=== PATIENT | female | born 1940 | race Caucasian/White ===

== ENCOUNTER 2021-09-02 11:15 | Inpatient (IN) ==
[2021-09-02 12:12] LABS: ABG PH 7.47 (7.35-7.45); BEecf 6.1 (-2.0-3.0); HCO3 29.8 (21-28)
[2021-09-02 12:13] LABS: ABG O2 HGB 91.5 % (95-100); COHb 2.3 (0.5-1.5); MetHb 1.2 (0-1.5); TCO2 31.1 (19-24); sO2 93.5 % (94-98); tHb 13.1 g/dl (11.7-17.4)
[2021-09-02] MEDS ORDERED: CARDIZEM INJ IVP ONE (12:36)
[2021-09-02] MEDS ORDERED: ELIQUIS PO ONE (12:39)
--- NOTE | 2021-09-02 12:43 | ED.PDOC ---
General ED Provider: Dr. JACQUIE TURCIOS Chief Complaint: Shortness of Air Stated Complaint: CC: SOB/Chest tightness. Palpitations Time Seen by Provider: 09/02/21 11:30 Mode of Arrival: Wheelchair Information Source: Patient Exam Limitations: No limitations Primary Care Provider: JAMES HINOJOSA Nursing and Triage Documentation Reviewed and Agree: Yes Does patient meet sepsis criteria?: No System Inflammatory Response Syndrome: Pulse >90 BPM Sepsis Protocol: For patient's 13 years and over: Temp is 96.8 and below OR 101 and greater Pulse >90 BPM Resp >20/minute Acutely Altered Mental Status Are patient's symptoms suggestive of a new infection, such as: -Pneumonia -Skin, Soft Tissue -Endocarditis -UTI -Bone, Joint Infection -Implantable Device -Acute Abdominal Infection -Wound Infection -Meningitis -Blood Stream Catheter Infection -Unknown Cardiovascular Complaint Exam Palpitations Complaint/Exam Onset/Duration: 2-3 days Symptoms Are: Still present Timing: Constant Initial Severity: Moderate Current Severity: Moderate Character: Reports Irregular and Pounding Aggravating: Reports Exertion Alleviating: Reports Rest Associated Signs and Symptoms: Reports Lightheadedness, Dizziness, Chest pain and Shortness of breath Related History: Similar episode Related Surgical History: Reports None Cardiac Risk Factors: Reports Hypertension Pulmonary Embolism Risk Factors: Reports None and Malignancy Atrial Fibrillation Risk Factors: Reports Hypertension Review of Systems Review Of Systems Constitutional: Reports Malaise and Weakness Eyes: Reports No symptoms Ears, Nose, Mouth, Throat: Reports No symptoms Respiratory: Reports Cough, Short of air and Wheezing Cardiac: Reports No symptoms GI: Reports No symptoms : Reports No symptoms Musculoskeletal: Reports No symptoms Skin: Reports No symptoms Neurological: Reports Anxiety Endocrine: Reports No symptoms All Other Systems: Reviewed and Negative [facility]LY [facility] Medical History (Updated 09/03/21 @ 15:56 by DEMETRIS RODRIGUEZ) Cancer Family History (Updated 09/02/21 @ 17:10 by OSMANY STEIN RN) Mother Cardiovascular disease FATHER Cardiovascular disease Social History (Updated 09/02/21 @ 17:12 by OSMANY STEIN RN) Smoking and tobacco status: Never smoker Alcohol intake: former Surgical History (Updated 09/03/21 @ 15:56 by DEMETRIS RODRIGUEZ) Hx of total knee arthroplasty Female Reproductive History Menstrual Hx Hysterectomy: Yes Hx Tubal Ligation: No Physical Exam Physical Exam Appearance: Reports Ill-appearing, Thin and Cachectic Ill-appearing: Severe Pain Distress: Mild Eyes: Reports DEBBIE, EOMI, Conjunctiva clear, Conjunctiva pale and Right pupil size (PERL_A) ENT: Reports Ears normal, Oropharynx normal and TMs Occluded Neck: Supple Respiratory: Reports Airway patent, Breath sounds diminished and Wheezes Cardiovascular: Reports RRR and No murmur GI/: Reports Soft, Nontender and No masses Musculoskeletal: Reports Normal strength, ROM intact, No edema and No calf tenderness Skin: Reports Warm, Dry and Normal color Neurological: Reports Sensation intact, Motor intact, Reflexes intact, Cranial nerves intact, Alert and Oriented Psychiatric: Reports Affect appropriate and Mood appropriate Interpretation Radiology Interpretation Radiology Interpretation By: ED Physician Xray Comments: EKG-afib rvr Critical Care Note Critical Care Note Total Critical Care Time (mins): 30 Course Course Hematology/Chemistry: 09/04/21 04:56 09/04/21 04:56 Orders, Labs, Meds: Lab Review 09/02/21 09/02/21 09/02/21 11:52 12:48 12:48 WBC 7.20 RBC 4.59 Hgb 12.8 Hct 40.0 MCV 87.1 MCH 27.9 MCHC 32.0 RDW Coeff of Jah 13.8 Plt Count 425 Immature Gran % (Auto) 0.1 Neut % (Auto) 74.4 Lymph % (Auto) 14.4 Oxford % (Auto) 8.6 Eos % (Auto) 1.9 Baso % (Auto) 0.6 Neut # (Auto) 5.4 Lymph # (Auto) 1.0 Oxford # (Auto) 0.6 Eos # (Auto) 0.1 Baso # (Auto) 0.0 Immature Gran # (Auto) 0.0 PT 10.8 INR 1.04 APTT 23.9 Puncture Site L rad Base Excess 6.1 H O2 Saturation 93.5 L ABG pH 7.47 H ABG pCO2 41.0 ABG pO2 64.0 L ABG HCO3 29.8 H ABG Total CO2 31.1 H Norman Test + Hemoglobin 1.2 Oxyhemoglobin 91.5 L Carboxyhemoglobin 2.3 H Total Hemoglobin 13.1 FiO2 % 21.0 Sodium Potassium Chloride Carbon Dioxide Anion Gap BUN Creatinine Estimated GFR (MDRD) BUN/Creatinine Ratio Glucose Calcium Magnesium Total Bilirubin AST ALT Alkaline Phosphatase Troponin I Total Protein Albumin Globulin Albumin/Globulin Ratio Adenovirus (PCR) B. pertussis DNA (PCR) B.parapertussis DNA PCR C. pneumoniae DNA (PCR) Coronavirus OC43 (PCR) Coronavirus HKU1 (PCR) Coronavirus 229E (PCR) Coronavirus NL63 (PCR) Human Metapneumovir PCR Influenza Type A (PCR) Influenza B (RT-PCR) M. pneumoniae (PCR) Parainfluenza 1 (PCR) Parainfluenza 2 (PCR) Parainfluenza 3 (PCR) Parainfluenza 4 (PCR) RSV (PCR) Entero/Rhino (PCR) SARS-CoV-2 (PCR) 09/02/21 09/02/21 12:48 14:57 WBC RBC Hgb Hct MCV MCH MCHC RDW Coeff of Jah Plt Count Immature Gran % (Auto) Neut % (Auto) Lymph % (Auto) Oxford % (Auto) Eos % (Auto) Baso % (Auto) Neut # (Auto) Lymph # (Auto) Oxford # (Auto) Eos # (Auto) Baso # (Auto) Immature Gran # (Auto) PT INR APTT Puncture Site Base Excess O2 Saturation ABG pH ABG pCO2 ABG pO2 ABG HCO3 ABG Total CO2 Norman Test Hemoglobin Oxyhemoglobin Carboxyhemoglobin Total Hemoglobin FiO2 % Sodium 140.6 Potassium 4.34 Chloride 103.9 Carbon Dioxide 29.1 Anion Gap 11.94 BUN 10.3 Creatinine 0.71 Estimated GFR (MDRD) 80.00 BUN/Creatinine Ratio 14.50 Glucose 115.9 H Calcium 9.12 Magnesium 2.32 H Total Bilirubin 0.36 AST 18.2 ALT 10.9 Alkaline Phosphatase 83.8 Troponin I < 0.012 Total Protein 7.44 Albumin 3.98 Globulin 3.46 Albumin/Globulin Ratio 1.15 Adenovirus (PCR) Not detected B. pertussis DNA (PCR) Not detected B.parapertussis DNA PCR Not detected C. pneumoniae DNA (PCR) Not detected Coronavirus OC43 (PCR) Not detected Coronavirus HKU1 (PCR) Not detected Coronavirus 229E (PCR) Not detected Coronavirus NL63 (PCR) Not detected Human Metapneumovir PCR Not detected Influenza Type A (PCR) Not detected Influenza B (RT-PCR) Not detected M. pneumoniae (PCR) Not detected Parainfluenza 1 (PCR) Not detected Parainfluenza 2 (PCR) Not detected Parainfluenza 3 (PCR) Not detected Parainfluenza 4 (PCR) Not detected RSV (PCR) Not detected Entero/Rhino (PCR) Not detected SARS-CoV-2 (PCR) Not detected Orders Category Date Time Status ADMIT PATIENT INPATIENT .TO [facility] (MONITORED BED) ADMISSION 09/02/21 15:20 Active ABG DRAW REQUEST Stat CARDIO 09/02/21 11:42 Completed EKG-(ED ONLY) Stat CARDIO 09/02/21 11:42 Completed EKG-(IP & OP ONLY) Routine CARDIO 09/02/21 14:50 Completed OXYGEN Routine CARDIO 09/02/21 14:49 Completed INTAKE & OUTPUT Q8HR CARE 09/02/21 14:49 Active TELEMETRY MONITORING TELE CARE 09/02/21 15:21 Active VITAL SIGNS Q4HR CARE 09/02/21 14:49 Active IV [ED IV/MEDIPORT/POWERPORT] .ONCE EMERGENCY 09/02/21 12:20 Active ABG COOX Stat LAB 09/02/21 11:52 Completed ABG COOX Stat LAB 09/02/21 12:19 Stop Req CBC W/ AUTO DIFF DAILY@0600 LAB 09/03/21 06:05 Completed CBC W/ AUTO DIFF DAILY@0600 LAB 09/04/21 04:56 Completed CBC W/ AUTO DIFF Stat LAB 09/02/21 12:48 Completed CMP [COMPREHENSIVE METABOLIC PANEL] Stat LAB 09/02/21 12:48 Completed COMPREHENSIVE METABOLIC PANEL DAILY@0600 LAB 09/04/21 04:56 Completed MAGNESIUM Stat LAB 09/02/21 12:48 Completed PARTIAL THROMBOPLASTIN TIME Stat LAB 09/02/21 12:48 Completed PT WITH INR DAILY@0600 LAB 09/03/21 06:05 Completed PT WITH INR DAILY@0600 LAB 09/04/21 04:56 Completed PT WITH INR Stat LAB 09/02/21 12:48 Completed RESPIRATORY PANEL 2.1 (PCR) Stat LAB 09/02/21 14:57 Completed TROPONIN I Stat LAB 09/02/21 12:48 Completed 0.9 % Sodium Chloride [Saline Flush] MEDS 09/02/21 12:19 Discontinued 1 syr IVF PRN PRN Apixaban [Eliquis] MEDS 09/02/21 17:00 Active 5 mg PO BIDWM Apixaban [Eliquis] MEDS 09/03/21 09:00 Discontinued 5 mg PO DAILY Apixaban [Eliquis] MEDS 09/02/21 12:39 Discontinued 5 mg PO ONCE ONE Diltiazem HCl [Cardizem Cd] MEDS 09/02/21 14:00 Active 120 mg PO DAILY Diltiazem HCl [Cardizem Inj] MEDS 09/02/21 12:36 Discontinued 20 mg IVP ONCE ONE Furosemide [Lasix Tab] MEDS 09/02/21 17:00 Discontinued 40 mg PO ONCE ONE RESUSCITATION STATUS Routine OTHERS 09/02/21 14:49 Completed CHEST, 1V AP ONLY Stat RADS 09/02/21 12:19 Completed Medications Generic Name Dose Route Start Last Admin Trade Name Freq PRN Reason Stop Dose Admin Acetaminophen 650 mg 09/02/21 21:39 Acetaminophen 325 Mg Tablet PO Q4H PRN Headache Apixaban 5 mg 09/02/21 17:00 09/03/21 18:13 Apixaban 5 Mg Tab PO 5 mg BIDWM ESDRAS Administration Atropine Sulfate 0.5 mg 09/02/21 21:39 Atropine Sulfate Inj 1 Mg/10 Ml Disp.Syrin IVP ONCE PRN Symptomatic Bradycardia Diltiazem HCl 120 mg 09/02/21 14:00 09/03/21 08:40 Diltiazem Hcl 120 Mg Cap.Er.24h PO 120 mg DAILY ESDRAS Administration Furosemide 20 mg 09/03/21 12:30 09/04/21 05:57 Furosemide 20 Mg Tablet PO 20 mg QDAC ESDRAS Administration CEFTRIAXONE/D5W 1 GM PREMIX 1 gm in 50 mls @ 75 mls/hr 09/04/21 09:00 Rocephin 1 Gm/50 Ml D5w IV 09/07/21 08:59 DAILY ESDRAS Losartan Potassium 50 mg 09/03/21 12:30 09/03/21 12:58 Losartan Potassium 25 Mg Tablet PO 50 mg DAILY ESDRAS Administration Nitroglycerin 0.4 mg 09/02/21 21:39 Nitroglycerin 0.4 Mg Tab.Subl SL Q5MIN X 3 DOSES PRN Chest Pain Omeprazole 40 mg 09/04/21 06:30 09/04/21 05:56 Omeprazole 20 Mg Capsule.Dr PO 40 mg QDAC ESDRAS Administration Potassium Chloride 10 meq 09/03/21 12:30 09/03/21 12:58 Potassium Chloride 10 Meq Capsule.Er PO 10 meq DAILYWM ESDRAS Administration Sodium Chloride 1 syr 09/03/21 05:00 09/04/21 05:57 0.9% Sodium Chloride 10 Ml Disp.Syrin IVF 1 syr Q8HR ESDRAS Administration Discontinued Medications Generic Name Dose Route Start Last Admin Trade Name Freq PRN Reason Stop Dose Admin Apixaban 5 mg 09/02/21 12:39 09/02/21 13:30 Apixaban 5 Mg Tab PO 09/02/21 12:40 5 mg ONCE ONE Administration Apixaban 5 mg 09/03/21 09:00 Apixaban 5 Mg Tab PO DAILY ESDRAS Dexamethasone Sodium Phosphate 4 mg 09/03/21 12:09 09/03/21 12:59 Dexamethasone Sod Phos 4 Mg/Ml Inj IM 09/03/21 12:10 4 mg ONCE ONE Administration Digoxin 125 mcg 09/02/21 21:23 09/02/21 22:46 Digoxin Inj 500 Mcg/2 Ml Amp IVP 09/02/21 21:24 125 mcg ONCE ONE Administration Diltiazem HCl 20 mg 09/02/21 12:36 09/02/21 13:18 Diltiazem Hcl Inj 25 Mg/5 Ml Vial IVP 09/02/21 12:37 20 mg ONCE ONE Administration Furosemide 40 mg 09/02/21 17:00 09/02/21 18:37 Furosemide 40 Mg Tablet PO 09/02/21 17:01 40 mg ONCE ONE Administration Furosemide 40 mg 09/02/21 21:24 09/02/21 22:46 Furosemide Inj 40 Mg/4 Ml Vial IVP 09/02/21 21:25 40 mg ONCE ONE Administration Omeprazole 40 mg 09/03/21 06:30 09/03/21 08:40 Omeprazole 20 Mg Capsule.Dr PO 40 mg DAILY ESDRAS Administration Sodium Chloride 1 syr 09/02/21 12:19 09/02/21 13:19 0.9% Sodium Chloride 10 Ml Disp.Syrin IVF 1 syr PRN PRN Administration To flush IV Sodium Chloride 1 syr 09/02/21 21:00 09/02/21 21:44 0.9% Sodium Chloride 10 Ml Disp.Syrin IVF 1 syr Q8HR ESDRAS Administration Vital Signs: Temp Pulse Resp BP Pulse Ox 09/02/21 11:15 97.9 F 111 H 18 124/90 93 L JOSE Risk Score JOSE Risk Score: Risk Score Odds of by 30D 0 0.1 (0.1-0.2) 1 0.3 (0.2-0.3) 2 0.4 (0.3-0.5) 3 0.7 (0.6-0.9) 4 1.2 (1.0-1.5) 5 2.2 (1.9-2.6) 6 3.0 (2.5-3.6) 7 4.8 (3.8-6.1) Discharge Plan Discharge Patient Disposition: ADMITTED INPATIENT Discharge Problem: A-fib, Left bundle branch block ED Provider: JACQUIE TURCIOS Physician Progress Note: []
[2021-09-02 12:55] LABS: BASOPHILS % (AUTO) 0.6 % (0.0-3.0); EOSINOPHILS # (AUTO) 0.1 K/ul (0.0-0.7); EOSINOPHILS % (AUTO) 1.9 % (0.0-7.0); HEMOGLOBIN 12.8 g/dl (12.0-16.0); IMMATURE GRANULOCYTE % (AUTO) 0.1 % (0.0-5.0); LYMPHOCYTES % (AUTO) 14.4 (10.0-50.0); MEAN CORPUSCULAR HEMOGLOBIN 27.9 pg (27.0-31.0); MEAN CORPUSCULAR VOLUME 87.1 fl (81.0-99.0); MONOCYTES # (AUTO) 0.6 K/uL (0.4-2.0); MONOCYTES % (AUTO) 8.6 (0-10); NEUTROPHILS # (AUTO) 5.4 K/ul (2.0-6.9); NEUTROPHILS % (AUTO) 74.4 % (42.2-75.2); PLATELET COUNT 425 10^3/uL (140-440); RDW COEFFICIENT OF VARIATION 13.8 % (11.6-14.8); RED BLOOD COUNT 4.59 10^6/ul (4.20-5.40)
[2021-09-02 13:03] LABS: ALANINE AMINOTRANSFERASE 10.9 U/L (0-35); ALBUMIN 3.98 g/dL (3.5-5.0); ALKALINE PHOSPHATASE 83.8 U/L (53-141); ASPARTATE AMINO TRANSFERASE 18.2 U/L (14-36); BILIRUBIN,TOTAL 0.36 mg/dL (0.2-1.3); BLOOD UREA NITROGEN 10.3 mg/dL (7-17); CALCIUM 9.12 mg/dL (8.4-10.2); CARBON DIOXIDE 29.1 mmol/L (22-30.0); CHLORIDE 103.9 mmol/L (98-107); CREATININE 0.71 mg/dL (0.60-1.30); GLUCOSE 115.9 mg/dL (74-106); MAGNESIUM 2.32 mg/dL (1.6-2.3); POTASSIUM 4.34 mmol/L (3.5-5.1); SODIUM 140.6 mmol/L (134.5-145); TOTAL PROTEIN 7.44 g/dL (6.3-8.2)
[2021-09-02 13:16] LABS: TROPONIN I < 0.012 ng/ml (0.0000-0.120)
[2021-09-02 13:28] LABS: PARTIAL THROMBOPLASTIN TIME 23.9 SEC (23.9-40.0); PROTHROMBIN TIME 10.8 SEC (9.3-11.0)
[2021-09-02] MEDS: CARDIZEM CD PO SCH (13:47)
--- NOTE | 2021-09-02 14:13 | DI ---
EXAM: Chest radiograph single view 09/02/2021 HISTORY: Shortness of breath COMPARISON: None. FINDINGS/IMPRESSION: Trachea is midline. Cardiomediastinal silhouette is enlarged which can be accentuated by the AP tech nique. Atherosclerotic change in the aorta. Bibasilar lung opacities; may represent pneumonia and/o r atelectasis. Osseous structures are intact. Degenerative change in the bilateral glenohumeral radha nts. Separation of the left AC joint.
[2021-09-02 15:05] LABS: BORDETELLA PARAPERTUSSIS (PCR) NOT DETECTED (NOT DETECT); BORDETELLA PERTUSSIS (PCR) NOT DETECTED (NOT DETECT); CHLAMYDIA PNEUMONIAE (PCR) NOT DETECTED (NOT DETECT); CORONAVIRUS 229E (PCR) NOT DETECTED (NOT DETECT); CORONAVIRUS HKU1 (PCR) NOT DETECTED (NOT DETECT); CORONAVIRUS NL63 (PCR) NOT DETECTED (NOT DETECT); CORONAVIRUS OC43 (PCR) NOT DETECTED (NOT DETECT); HUMAN METAPNEUMOVIRUS (PCR) NOT DETECTED (NOT DETECT); HUMAN RHINOVIRUS/ENTEROV (PCR) NOT DETECTED (NOT DETECT); INFLUENZA B (PCR) NOT DETECTED (NOT DETECT); MYCOPLASMA PNEUMONIAE (PCR) NOT DETECTED (NOT DETECT); PARAINFLUENZA VIRUS 1 (PCR) NOT DETECTED (NOT DETECT); PARAINFLUENZA VIRUS 2 (PCR) NOT DETECTED (NOT DETECT); PARAINFLUENZA VIRUS 3 (PCR) NOT DETECTED (NOT DETECT); PARAINFLUENZA VIRUS 4 (PCR) NOT DETECTED (NOT DETECT); RESPIRATORY SYNCYTIAL V (PCR) NOT DETECTED (NOT DETECT); SARS_COV_2 (PCR) NOT DETECTED (NOT DETECT)
[2021-09-02 15:52] LABS: ADENOVIRUS (PCR) NOT DETECTED (NOT DETECT)
[2021-09-02] MEDS ORDERED: LASIX TAB PO ONE (17:00)
--- NOTE | 2021-09-02 17:10 | CT ---
EXAM: CT of the chest without contrast. HISTORY: Chest pain. COMPARISON: None. TECHNIQUE: Contiguous axial images were obtained from the lung apices to the upper abdomen at 3 mm i ntervals. Soft tissue and lung algorithm images were reviewed. The study was performed without cont rast IV contrast. Sagittal and coronal reformats were reviewed. CONTRAST: None FINDINGS: The study is limited by motion artifact. LUNGS/AIRWAYS: Bilateral pleural effusions, right greater than left. Mild interstitial prominence. There is a noncalcified nodule in the right upper lobe, best seen on axial image 26 measuring up to 0.8 cm. Measurements are limited due to the motion artifact. Calcified granulomas. The pulmonary interstitium is normal. The airways are widely patent. There is no pleural thickening. HEART: The heart size is within normal limits. Coronary artery calcifications. Aortic valve calcifi cations. MEDIASTINUM/DILMA: Calcified lymph nodes. CHEST WALL/THORACIC INLET: No masses or adenopathy. OSSEUS STRUCTURES: Normal for age. UPPER ABDOMEN: Limited views of the upper abdomen are available. ADDITIONAL FINDINGS: None IMPRESSION: 1. Bilateral pleural effusions, right greater than left. 2. Granulomatous change. 3. Noncalcified nodule in the right upper lobe. This appear to be subpleural location. However lizandro surements are limited due to motion artifact. Recommend follow-up study and 3 months, after symptoms resolve. 4. Coronary artery disease. 5. Granulomatous changes. All CT scans are performed using dose optimization techniques as appropriate to the performed exam an d include at least one of the following: Automated exposure control, adjustment of the mA and/or kV according t o size, and the use of iterative reconstruction technique.
[2021-09-02 17:48] VITALS: BMI 36.3
[2021-09-02] MEDS: ELIQUIS PO SCH (18:38)
[2021-09-02] MEDS ORDERED: ATROPINE SULFATE PFS IVP PRN ×2 (21:39→21:44)
[2021-09-02] MEDS ORDERED: TYLENOL PO PRN (21:39)
[2021-09-02] MEDS ORDERED: NITROSTAT SL PRN (21:39)
[2021-09-02] MEDS: LANOXIN IVP ONE ×2 (21:44→22:46)
[2021-09-02] MEDS: LASIX IVP ONE ×2 (21:44→22:46)
[2021-09-02 22:29] LABS: CREATINE KINASE 39.7 U/L (30-135)
[2021-09-02 22:42] LABS: TROPONIN I 0.013 ng/ml (0.0000-0.120)
[2021-09-02 23:04] LABS: BILIRUBIN,URINE Negative (NEGATIVE); CLARITY,URINE Cloudy (CLEAR); COLOR,URINE Yellow (YELLOW); GLUCOSE, URINE (UA) Negative (NEGATIVE); KETONES,URINE Negative (NEGATIVE); LEUKOCYTE ESTERASE ,URINE 2+ (NEGATIVE); NITRITE,URINE Positive (NEGATIVE); PROTEIN,URINE Negative (NEGATIVE); URINE, BLOOD Negative (NEGATIVE); UROBILINOGEN,URINE 0.2 (0.2)
[2021-09-02 23:16] LABS: AMORPHOUS SEDIMENT,UR 2+ (NOT PRESENT); BACTERIA,URINE 2+ (NOT PRESENT)
[2021-09-03 05:20] LABS: ABG O2 HGB 92.3 % (95-100); ABG PH 7.43 (7.35-7.45); BEecf 8.2 (-2.0-3.0); COHb 2.3 (0.5-1.5); HCO3 32.5 (21-28); MetHb 0.9 (0-1.5); sO2 90.5 % (94-98); tHb 12.3 g/dl (11.7-17.4)
[2021-09-03] MEDS: PRILOSEC PO SCH ×2 (05:40→08:40)
[2021-09-03 06:08] LABS: BASOPHILS % (AUTO) 0.5 % (0.0-3.0); EOSINOPHILS # (AUTO) 0.2 K/ul (0.0-0.7); EOSINOPHILS % (AUTO) 3.6 % (0.0-7.0); HEMATOCRIT 36.8 % (37.0-47.0); HEMOGLOBIN 11.9 g/dl (12.0-16.0); IMMATURE GRANULOCYTE % (AUTO) 0.3 % (0.0-5.0); LYMPHOCYTES # (AUTO) 1.2 K/uL (0.60-3.4); LYMPHOCYTES % (AUTO) 20.1 (10.0-50.0); MEAN CORPUSCULAR HEMOGLOBIN 28.1 pg (27.0-31.0); MEAN CORPUSCULAR HGB CONC 32.3 (31.8-35.4); MEAN CORPUSCULAR VOLUME 86.8 fl (81.0-99.0); MONOCYTES # (AUTO) 0.6 K/uL (0.4-2.0); MONOCYTES % (AUTO) 10.1 (0-10); NEUTROPHILS % (AUTO) 65.4 % (42.2-75.2); PLATELET COUNT 390 10^3/uL (140-440); RDW COEFFICIENT OF VARIATION 13.9 % (11.6-14.8); RED BLOOD COUNT 4.24 10^6/ul (4.20-5.40); WHITE BLOOD COUNT 6.12 K/ul (4.6-10.2)
[2021-09-03 06:19] LABS: ALANINE AMINOTRANSFERASE 9.1 U/L (0-35); ALBUMIN 3.79 g/dL (3.5-5.0); ALKALINE PHOSPHATASE 77.6 U/L (53-141); ASPARTATE AMINO TRANSFERASE 19.8 U/L (14-36); BILIRUBIN,TOTAL 0.49 mg/dL (0.2-1.3); BLOOD UREA NITROGEN 10.6 mg/dL (7-17); CALCIUM 8.68 mg/dL (8.4-10.2); CHLORIDE 100.1 mmol/L (98-107); CHOLESTEROL 156.2 mg/dL (0-200); CREATINE KINASE 24.7 U/L (30-135); CREATININE 0.71 mg/dL (0.60-1.30); GLUCOSE 98.8 mg/dL (74-106); LDL CHOLESTEROL,CALCULATED 105 mmol/L; POTASSIUM 3.75 mmol/L (3.5-5.1); PROTHROMBIN TIME 11.7 SEC (9.3-11.0); SODIUM 140.5 mmol/L (134.5-145); TOTAL PROTEIN 7.07 g/dL (6.3-8.2); VLDL CHOLESTEROL 18 mg/dL (2-30)
[2021-09-03 06:33] LABS: TROPONIN I < 0.012 ng/ml (0.0000-0.120)
[2021-09-03] MEDS: CARDIZEM CD PO SCH (08:40)
[2021-09-03] MEDS: ELIQUIS PO SCH ×2 (08:41→18:13)
[2021-09-03] MEDS ORDERED: ELIQUIS PO SCH (09:00)
--- NOTE | 2021-09-03 11:33 | RS.OTINEVL ---
Subjective - Patient information Date of Evaluation: 09/03/21 Date of Arrival on Unit: 09/02/21 Admitted From:: Home Diagnosis: New onset Afib, LBBB, SOA PRECAUTIONS: Fall Risk Usual Living Arrangement: With Spouse Living Arrangement Comments: Lives alone with spouse Home Environment: House Medical History: Hypertension, Cancer Medical History Comments:: R TKA, LATEX ALLERGY?: Yes - Level of function Current Equipment Used at Home: PATIENT REPORTS HAVING WALKER AND CANE - UTILIZES NEEDED. SHOWER CHAIR & LIFT CHAIR. Pain Assessment - Pain Pain Score: 0 Interventions - Objective Patient Orientation: Person, Situation Current Interventions: Oxygen Observation: Pt having SOA with activity. Pt requires verbal cues during ADLS. Pt had an accident and wet her undergarments. Pt agreed to wear a depends. Pt was maximum assistance to eva the brief over her feet. Pt requires cues to complete tasks. Pt reported she does not use a RW at home but she will use a straight can when she gets out in the community. Interventions - ROM Right Upper Extremity AROM: WFL's Left Upper Extremity AROM: WFL's - Strength Right Upper Extremity Strength: Normal Left Upper Extremity Strength: Mild Weakness - Sensation Right Upper Extremity Sensation: Intact/Normal Left Upper Extremity Sensation: Intact/Normal Balance - Sitting Balance Static Sitting Balance: Fair Dynamic Sitting Balance: Fair - Standing Balance Static Standing Balance: Poor Dynamic Standing Balance: Poor - Comments Balance Assessment Comments: Pt is not steady on her feet at this time. Pt would benefit from a RW to increase her safety during functional mobility. ADL Skills - Self Feeding Self Feeding: Independent - Dressing Dressing UE: Independent, Verbal Cues Dressing LE: Max Assist, 1 person assist - Toilet Management Toilet Hygiene: Set Up Only, Verbal Cues - Comments Comments:: Pt requires verbal cues to complete tasks. Functional Mobility - Bed Mobility Rolling R/L: Independent Scooting: Independent Supine to Sit: Independent Sit to Supine: Independent - Transfers Sit to Stand: CGA Stand to Sit: CGA Stand Pivot Transfers: Min Assist PEBBLES INDEX SCORE: . Additional Treatment Performed - Additional units charged ADL: 15 - Time with patient Length of Evaluation: 19 Total treatment time: 34 Activities Would you be interested in leaving your room for activities?: Yes Would you enjoy group activities?: Yes Do you have difficulty with your vision?: Yes Patient Interests:: Watching Television, Visiting/Socializing Patient Education Patient Education: Education of diagnosis, Home Exercise Program, Education of Plan of Care Teaching Recipient: Patient Teaching Methods: Discussion Assessment Problem List:: Decreased level of function, Requires training/education, Decreased safety/Risk of falls, Weakness Rehab Potential: Fair Further Therapy Indicated?: Yes Evaluation Complexity: HISTORY: Medium, EXAM OF BODY SYSTEMS: Medium, CLINICAL D ECISION MAKING: Medium Patient's Goal(s): To improve with the SOA. Short Term Goals - Goals GOAL 1: Pt to be Mod-Independent with BLE dressing with AE. Goal to be met by: 09/09/21 GOAL 2: Pt to increase dyn. std. bal. to fair+ for functional mobility. Goal to be met by: 09/09/21 GOAL 3: Pt to increase activity tolerance to 10 minutes to increase safety of ADLS. Goal to be met by: 09/09/21 GOAL 4: Pt to increase strength of BUE to 4/5. 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 Goal to be met by: 09/12/21 GOAL 2: Pt to increase activity tolerance to 15 minutes. Goal to be met by: 09/12/21 GOAL 3: Pt to increase dyn. std. bal. to G-. Goal to be met by: 09/12/21 Plan Plan of Care: Therapeutic EX, Therapeutic Activity, Self-Care/Home Management, Cognitive Training Frequency of Treatment: 1-2 X day, as tolerated Duration of Treatment: 2 Weeks Anticipated Discharge Destination: Home Treatment Diagnosis (ICD 10 Codes): R53.1 Weakness, Z74.1 Need for assistance with personal care, Z74.0 Need ofr assistance with personal care. Has the Physician been added for Co-signature?: Yes
--- NOTE | 2021-09-03 11:47 | RS.PTINEVL ---
Subjective - Patient information Date of Evaluation: 09/03/21 Date of Arrival on Unit: 09/02/21 Admitted From:: Home Diagnosis: Afib with L BBB Usual Living Arrangement: With Spouse Home Environment: House, Stairs (few), Rail Medical History: Hypertension, Arthritis, Cancer Surgical History: Knee Replacement (right), Hysterectomy Medications: see chart Subjective Information/ Patient Comments:: pt states that she feels she is doing ok with her mobility however is agreeable to work with therapy. pt reports that she lives at home with and that he helps her anytime she needs it. - Level of function Prior to this admission, the patient could do the following:: Independent Selfcare, Independent Ambulation Current Level of Function: Partially Dependent Current Equipment Used at Home: PATIENT REPORTS HAVING WALKER AND CANE - UTILIZES NEEDED. SHOWER CHAIR & LIFT CHAIR. Interventions - Objective Patient Orientation: Person, Place (pt is confused re: situation and time. pt has difficulty with memory as well. ) Current Interventions: Oxygen (2 liters), Telemetry Observation: pt found to have been incontinent of urine, assisted pt with hygiene and notified nursing that she needed more bed linens. Range of Motion - ROM Right Upper Extremity AROM: WFL's Left Upper Extremity AROM: WFL's Right Lower Extremity AROM: WFL's Left Lower Extremity AROM: WFL's Muscle Strength - Muscle Strength Right Upper Extremity Strength: Mild Weakness (grossly 4/5) Left Upper Extremity Strength: Mild Weakness (grossly 4/5) Right Lower Extremity Strength: Mild Weakness (hip flex 4-/5, knee flex/ext 4/5, ankle DF/PF 4/5) Left Lower Extremity Strength: Mild Weakness (hip flex 4-/5, knee flex/ext 4/5, ankle DF/PF 4/5) Sensation - Sensation Right Upper Extremity Sensation: Intact/Normal Left Upper Extremity Sensation: Intact/Normal Right Lower Extremity Sensation: Intact/Normal Left Lower Extremity Sensation: Intact/Normal Palpation Palpation Findings: None/Normal Balance - Sitting Balance and Reactions Static Sitting Balance: Good Dynamic Sitting Balance: Fair (fair+) - Standing Balance and Reactions Static Standing Balance: Fair (fair-) Dynamic Standing Balance: Poor Standing Equilibrium Reactions: Delayed Left (pt demonstrates decreased balance with gait. ), Delayed Right Standing Protective Reactions: Delayed Left, Delayed Right Functional Mobility - Bed Mobility Supine to Sit: CGA - Transfers Sit to Stand: Min Assist Stand to Sit: CGA - Safety Awareness Safety Awareness: Poor PEBBLES INDEX SCORE: n/a Ambulation - Ambulation Assistive Device Used: Gait belt Orthotic/Prosthetic Device: No Distance: 25ft Assistance needed with Ambulation: CGA, Min Assist Gait Deviations: Forward posture, Short stride, Deviates from path Ambulation Comments: Feel pt would benefit from amb with rwx due to balance issues. Factors Affecting Ambulation: Decreased Balance, Breathing/O2 Saturation, Weakness, Decreased Safety, Cognitive Status, Limited Endurance Treatment time - Time with patient Length of Evaluation: 21 Total treatment time: 32 Patient Education - Education Patient Education: Activity Modification, Education of Plan of Care Teaching Recipient: Patient Teaching Methods: Discussion Comments: discussion regarding POC Assessment - Assessment Problem List:: Decreased level of function, Requires training/education, Decreased safety/Risk of falls, Weakness, Cognitive status limits abilities Rehab Potential: Good Further Therapy Indicated?: Yes Candidate for Swing Bed for Therapy Services?: Feel pt may be too high level for swing bed, could reassess at later time. Evaluation Complexity: HISTORY: Medium, EXAM OF BODY SYSTEMS: Medium, CLINICAL PRESENTATION: Medium, CLINICAL DECISION MAKING: Medium Patient's Goal(s): Get better so I can go home with my . Short Term Goals GOAL #1: pt independent with rolling and scooting in bed. Goal to be met by: 09/05/21 GOAL #2: Transfer sup to sit SBA Goal to be met by: 09/05/21 GOAL #3: Sit to/from stand CGA to SBA Goal to be met by: 09/05/21 GOAL #4: pt amb with rwx 100ft w O2 with CGA no LOB Goal to be met by: 09/05/21 GOAL #5: Improve strength BLE 4 to 4+/5 Goal to be met by: 09/05/21 Halfway Goals GOAL #1: pt transfer sup to/from sit to/from stand independently Goal to be met by: 09/08/21 GOAL #2: pt amb functional household distance with rx SBA to independent Goal to be met by: 09/08/21 GOAL #3: Ascend/descend 3 steps with HR. Goal to be met by: 09/08/21 Plan Plan of Care: Therapeutic EX, Therapeutic Activity Other:: gait training Frequency of Treatment: 1-2 X day, as tolerated Duration of Treatment: 5 days Anticipated Discharge Destination: Home Treatment Diagnosis (ICD 10 Codes): impaired balance R 26.81. gait difficulty R 26.2. muscle weakness M62.81 Has the Physician been added for Co-signature?: Yes
[2021-09-03] MEDS ORDERED: DECADRON IM ONE (12:09)
[2021-09-03 12:25] LABS: ABSOLUTE RETICS # 0.0944; RETICULOCYTE % 2.21 %; RETICULOCYTE HEMOGLOBIN 32.5
[2021-09-03 12:29] LABS: IRON 42.6 ug/dL (37-170)
[2021-09-03] MEDS: COZAAR PO SCH (12:58)
[2021-09-03] MEDS: LASIX TAB PO SCH (12:58)
[2021-09-03] MEDS: MICRO-K CAP PO SCH (12:58)
[2021-09-03 13:40] LABS: FOLATE > 20.00 ng/mL
--- NOTE | 2021-09-03 15:56 | RS.COGEVAL ---
Subjective Date of Evaluation: 09/03/21 Diagnosis: a-fib, SOB Current Level of Function: This 80 year old female was admitted with new onset of a-fib. Pt is being evaluated for cognitive deficits due to confusion and memory deficits. Current Subjective/complaints:: Pt sitting upright in recliner chair upon STATISTICAL CLERK entry. Pt offered no complaints. Pt agreeable to participate in cognitive testing. Patient's Goals: To return to home environment at [facility]. Information Informal Assessment:: She verbalized independent levels for all home management tasks including mail/bills/finances/medications. She recently had a change with memory function and has noticed decreased memory retention that she feels does not interefere with her daily routines. She reported wearing bilateral hearing aids, but only has her left one at this time. She wears glasses at all times. 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 Pt continued to discuss her home management skills which will include caring for two young children under the age of six. Formal/Objective Assessment:: SLUMs assessment completed. SLUMs assesses orientation, memory, language, mental manipulation, problem solving, auditory comprehenison, and clock drawing. Scores range from 30-27 WNL, 26-20 mild cognitive impairment, and 19-0 indicate dementia range. Pt scored 17/30 indicating dementia range. Orientation, problem solving, mental manipulation, expressive language were completed without deficits. Immediate/delayed memory recall, clock drawing, and auditory comprehension were completed with moderate- severe deficits. Pt demonstrated a moderate cognitive deficit. Analysis:: Pt demonstrated functional scores during orientation, simple problem solving, mental manipulation, and expressive language tasks. Pt demonstrated moderate-severe deficits with receptive language including auditory comprehension, clock drawing with time, and immediate and delayed recall/retention tasks. Pt presented with a moderate cognitive deficit. Summary and Recommendations:: Pt presented with cognitive deficits in immediate and delayed memory recall that does interfere with her communication exchanges. With unstructured 'wh' questions, pt demonstrated limited details in conversation and verbal repetition of previously stated information was observed several times. With auditory comprehension tasks, pt demonstrated 40% accuracy indicating she comprehends less than 50% of presented information; this could be attributed to hearing deficits and memory retention. At this time, pt would benefit from skilled speech therapy to address memory function. Functional Reporting G Codes: n/a Severity Impairment Rationale: n/a Short Term Goals Problem: Memory retention Goal #1: Pt utilize memory recall strategies, aids, devices w/ 80%. Problem: Auditory comprehension Goal #2: Pt recall 5 facts from verbal/visual/auditory information. Problem: Time management Goal #3: Pt draw a clock and set time with 100% accuracy. Clerical Order Filler Goals Problem: Cognitive deficits Goal #1: Pt demo 90% accuracy with cognitive tasks. Plan Duration of Treatment: 1 Week Frequency of Treatment: 1-2x/week Anticipated Discharge Destination: Home - Treatment Code (1) Cognitive communication deficit Code(s): R41.841 - Cognitive communication deficit
[2021-09-04 05:17] LABS: BASOPHILS % (AUTO) 0.1 % (0.0-3.0); HEMATOCRIT 35.9 % (37.0-47.0); HEMOGLOBIN 11.7 g/dl (12.0-16.0); IMMATURE GRANULOCYTE % (AUTO) 0.4 % (0.0-5.0); LYMPHOCYTES # (AUTO) 0.7 K/uL (0.60-3.4); LYMPHOCYTES % (AUTO) 7.3 (10.0-50.0); MEAN CORPUSCULAR HEMOGLOBIN 28.2 pg (27.0-31.0); MEAN CORPUSCULAR HGB CONC 32.6 (31.8-35.4); MEAN CORPUSCULAR VOLUME 86.5 fl (81.0-99.0); MONOCYTES # (AUTO) 0.4 K/uL (0.4-2.0); MONOCYTES % (AUTO) 3.9 (0-10); NEUTROPHILS % (AUTO) 88.3 % (42.2-75.2); PLATELET COUNT 429 10^3/uL (140-440); RDW COEFFICIENT OF VARIATION 13.5 % (11.6-14.8); RED BLOOD COUNT 4.15 10^6/ul (4.20-5.40); WHITE BLOOD COUNT 9.04 K/ul (4.6-10.2)
[2021-09-04 05:30] LABS: ALANINE AMINOTRANSFERASE 9.8 U/L (0-35); ALBUMIN 3.75 g/dL (3.5-5.0); ALKALINE PHOSPHATASE 73.3 U/L (53-141); ASPARTATE AMINO TRANSFERASE 19.1 U/L (14-36); BILIRUBIN,TOTAL 0.38 mg/dL (0.2-1.3); BLOOD UREA NITROGEN 15.7 mg/dL (7-17); CALCIUM 9.13 mg/dL (8.4-10.2); CARBON DIOXIDE 29.9 mmol/L (22-30.0); CHLORIDE 100.4 mmol/L (98-107); CREATININE 0.65 mg/dL (0.60-1.30); GLUCOSE 130.8 mg/dL (74-106); POTASSIUM 4.3 mmol/L (3.5-5.1); SODIUM 137.7 mmol/L (134.5-145); TOTAL PROTEIN 6.98 g/dL (6.3-8.2)
[2021-09-04 05:34] LABS: PROTHROMBIN TIME 11.5 SEC (9.3-11.0)
[2021-09-04] MEDS: PRILOSEC PO SCH (05:56)
[2021-09-04] MEDS: LASIX TAB PO SCH (05:57)
--- NOTE | 2021-09-04 09:15 | PCM.PROG ---
Attending Provider: ATTENDING PROVIDER: Dr. CUAUHTEMOC HERNÁNDEZ This patient is seen with Danna Valle, Nurse Practitioner. DATE OF SERVICE: 09/04/21 SUBJECTIVE: This 80 year old /WHITE F was hospitalized 09/02/21. The patient denies any chest pain and denies shortness of breath. The patient has lost 5 pounds since admission. REVIEW OF SYSTEMS: CONSTITUTIONAL: No night sweats. No fatigue, malaise, lethargy. No fever or chills. Weakness. HEENT: Eyes: No visual changes. No eye pain. No eye discharge. ENT: No runny nose. No epistaxis. No sinus pain. No odynophagia. No congestion. RESPIRATORY: No cough, no congestion. No hemoptysis. No shortness of breath. CARDIOVASCULAR: No angina symptoms. No CHF symptoms. No atypical chest pain for CAD. No palpitations. No orthopnea.. GASTROINTESTINAL: No abdominal pain. No nausea or vomiting. No diarrhea or constipation. No hematemesis. No hematochezia. GENITOURINARY: No urgency. No frequency. No dysuria. No hematuria. No ob structive symptoms. No discharge. No pain. No significant abnormal bleeding. MUSCULOSKELETAL: No musculoskeletal pain; no joint swelling. NEUROLOGICAL: Awake, alert, oriented to time, place and person. No headache. No neck pain. No syncope. No seizures. No dizziness. PSYCHIATRIC: Not anxious. No depression. No suicidal thoughts. No homicidal thoughts. SKIN: No rash. No lesions. No wounds. ENDOCRINE: No unexplained weight loss. No weight gain. HEMATOLOGIC/LYMPHATIC: No anemia. No purpura. No petechiae. No prolonged or excessive bleeding. No palpable lymph nodes. PHYSICAL EXAMINATION: GENERAL: The patient is awake, alert and oriented, lying in bed in no distress. VITAL SIGNS: Temperature 97.3 F, Pulse 82, Respiratory Rate 16, BP 107/66, Pulse Ox 99% HEENT: Head normocephalic, atraumatic. Eyes: Extraocular muscles are intact. Pupils are equal, round and reactive to light and accommodation. Ears: No lesions. Nose appeared normal. Throat: No exudate or erythema. NECK: Supple. No JVD, no carotid bruit. No lymphadenopathy or thyromegaly. LUNGS: Diminished breath sounds. Clear to auscultation. Percussion note normal. Chest symmetrical. HEART: S1, S2, no S3. No murmurs. No cyanosis or clubbing. No ascites. Pulses: Dorsalis pedis and posterior tibial pulses +1 to +2 both sides. ABDOMEN: Soft. Non-tender. Bowel sounds active. No CVA tenderness. No mass felt. EXTREMITIES: No edema. Full range of motion of all extremities, equal. NEUROLOGIC: No focal deficit. Cranial nerves II through XII are grossly intact. No headache. No double vision. SKIN: Not dry. Intact. Turgor-normal. LYMPHATIC: No palpable lymph nodes/no lymphedema. MUSCULOSKELETAL: Normal joints with no swelling. Muscle tone is normal. LAB REVIEW: 09/04/21 04:56 09/04/21 04:56 09/04/21 04:56: Sodium 137.7, Potassium 4.30, Chloride 100.4, Carbon Dioxide 29.9, Anion Gap 11.70, BUN 15.7, Creatinine 0.65, Estimated GFR (MDRD) 88.00, BUN/Creatinine Ratio 24.15, Glucose 130.8 H, Calcium 9.13, Total Bilirubin 0.38, AST 19.1, ALT 9.8, Alkaline Phosphatase 73.3, Total Protein 6.98, Albumin 3.75, Globulin 3.23, Albumin/Globulin Ratio 1.16 09/04/21 04:56: PT 11.5 H, INR 1.12 09/04/21 04:56: WBC 9.04, RBC 4.15 L, Hgb 11.7 L, Hct 35.9 L, MCV 86.5, MCH 28.2, MCHC 32.6, RDW Coeff of Jah 13.5, Plt Count 429, Immature Gran % (Auto) 0.4, Neut % (Auto) 88.3 H, Lymph % (Auto) 7.3 L, [place] % (Auto) 3.9, Eos % (Auto) 0.0, Baso % (Auto) 0.1, Neut # (Auto) 8.0 H, Lymph # (Auto) 0.7, [place] # (Auto) 0.4, Eos # (Auto) 0.0, Baso # (Auto) 0.0, Immature Gran # (Auto) 0.0 09/03/21 06:05: Transferrin 230 09/03/21 06:05: Iron 42.6, TIBC 288, % Saturation 15, Vitamin B12 214 L 09/03/21 06:05: Ferritin 37.40, NT-Pro-B Natriuret Pep 2420.000 H, Folate > 20.00 09/03/21 06:05: Reticulocyte % (Auto) 2.21, Absolute Retic 0.0944, Retic Hgb Equivalent 32.5 ASSESSMENT: Please see below. 1. New onset atrial fibrillation, controlled 2. Shortness of breath, improved 3. Bilateral pleural effusion 4. UTI PLAN: 1. Rocephin 1 gram IV daily 2. Repeat ABG this morning on 3 liters 3. 2D echo today 4. The patient reports she was previously a patient of Dr. Patel however has not seen a provider for some time. 5. Lipids, A1c along with T4 and TSH within normal limits. Plan and coordination of the patient's care discussed in the presence of Eclectic Doctor and nurse. SCRIBED BY: ANJEL CONWAY International Marketing Manager scribed while in presence of service performed by Dr. Hernández/Danna Valle APRN on 09/04/21 (811)
[2021-09-04 10:21] LABS: ABG PH 7.45 (7.35-7.45); BEecf 7.3 (-2.0-3.0); HCO3 31.3 (21-28); MetHb 0.9 (0-1.5); TCO2 32.7 (19-24); sO2 98.1 % (94-98)
[2021-09-04] MEDS: MICRO-K CAP PO SCH (10:26)
[2021-09-04] MEDS: ELIQUIS PO SCH ×2 (10:27→17:26)
[2021-09-04] MEDS: CARDIZEM CD PO SCH (10:27)
[2021-09-04] MEDS: COZAAR PO SCH (10:27)
[2021-09-04] MEDS: ROCEPHIN 1 GM/50 ML D5W 1 GM/50 ML BAG IV SCH (10:32)
--- NOTE | 2021-09-04 13:44 | PN ---
DATE OF SERVICE: 09/03/2021 SUBJECTIVE: 80 year old white female hospitalized with new onset of atrial fibrillation, shortness of breath and chest pressure. She is feeling a lot better. She doesn't have any chest pressure, shortness of breath is less than before. She says that she has been passing urine all night. REVIEW OF SYSTEMS: CONSTITUTIONAL: No night sweats. No fatigue, malaise, lethargy. No fever or chills. HEENT: Eyes: No visual changes. No eye pain. No eye discharge. ENT: No runny nose. No epistaxis. No sinus pain. No sore throat. No odynophagia. No congestion. RESPIRATORY: No cough, no congestion. No hemoptysis. Mild shortness of breath on exertion. CARDIOVASCULAR: No angina symptoms. No CHF symptoms. No atypical chest pain for CAD. No palpitations. No PND. No orthopnea. GASTROINTESTINAL: No abdominal pain. No nausea or vomiting. No diarrhea or constipation. No hematemesis. No hematochezia. Appetite is better. GENITOURINARY: No urgency. No frequency. No dysuria. No hematuria. No obstructive symptoms. No discharge. No pain. No significant abnormal bleeding. MUSCULOSKELETAL: No musculoskeletal pain; no joint swelling. NEUROLOGICAL: No headache. No neck pain. No syncope. No seizures. No dizziness. PSYCHIATRIC: Not anxious. No depression. No suicidal thoughts. No homicidal thoughts. SKIN: No rash. No lesions. No wounds. ENDOCRINE: No unexplained weight loss. No weight gain. HEMATOLOGIC/LYMPHATIC: No anemia. No purpura. No petechiae. No prolonged or excessive bleeding. No palpable lymph nodes. PHYSICAL EXAMINATION: GENERAL: The patient is oriented to time, place and person. VITAL SIGNS: Temperature 97.3, pulse 85, respiratory rate 18, blood pressure 150/56 and pulse ox 91% on room air. HEENT: Head normocephalic, atraumatic. Eyes: Extraocular muscles are intact. Pupils are equal, round and reactive to light and accommodation. Ears: No lesions. Nose appeared normal. Throat: No exudate or erythema. NECK: Supple. No JVD, no carotid bruit. No lymphadenopathy or thyromegaly. LUNGS: Decreased breath sounds but clear to auscultation. Good air entry, better than yesterday. Percussion note normal. Chest symmetrical. HEART: S1, S2, no S3. No murmurs. No cyanosis or clubbing. No ascites. Pulses: Dorsalis pedis and posterior tibial pulses +1 to +2 bilaterally. ABDOMEN: Soft. Nontender. Bowel sounds active. No CVA tenderness. No mass felt. EXTREMITIES: Edema noted much better than yesterday. Full range of motion of all extremities, equal. NEUROLOGIC: No focal deficit. Cranial nerves II through XII are grossly intact. No headache. No double vision. SKIN: Not dry. Intact. Turgor - normal. LYMPHATIC: No palpable lymph nodes/no lymphedema. MUSCULOSKELETAL: Normal joints with no swelling. Muscle tone is normal. LABS: Hgb 11.9, hct 36, WBC 6,100 normal differential, creatinine 0.7, BUN 10, potassium 3.7. Arterial blood gasses done this morning was pO2 of 58, pCo2 49 with pH 7.43 with 95% saturation on room air. ASSESSMENT: 1. Atrial fibrillation 2. Congestive heart failure, improving 3. Hypertension, Under control 4. Chronic anemia 5. Compensated respiratory acidosis with mild Co2 retention and Hypoxemia. The patient says that she has never been a smoker. This could be from CHF along with second hand smoke from her parents. Both of them smoked all their life. PLAN: 1. Anemia profile 2. Cozaar 50mg PO QAM 3. Lasix 20mg PO 4. K-tab 20meq PO daily 5. 1cc Decadron IM 6. BNP in the morning 7. Wait for T4, TSH and lipid profile 8. The patient was educated and explained about all the diagnosis in detail. CHF educated carried about TIME SPENT: More than 30 minutes. EXTENSIVE. Plan and coordination of the patient's care discussed in the presence of nurse. SHAWANDA
[2021-09-05 05:30] LABS: BASOPHILS % (AUTO) 0.1 % (0.0-3.0); EOSINOPHILS % (AUTO) 0.4 % (0.0-7.0); HEMATOCRIT 34.7 % (37.0-47.0); HEMOGLOBIN 11.5 g/dl (12.0-16.0); IMMATURE GRANULOCYTE % (AUTO) 0.3 % (0.0-5.0); LYMPHOCYTES # (AUTO) 1.6 K/uL (0.60-3.4); LYMPHOCYTES % (AUTO) 15.3 (10.0-50.0); MEAN CORPUSCULAR HEMOGLOBIN 28.2 pg (27.0-31.0); MEAN CORPUSCULAR HGB CONC 33.1 (31.8-35.4); MONOCYTES # (AUTO) 0.8 K/uL (0.4-2.0); MONOCYTES % (AUTO) 7.1 (0-10); NEUTROPHILS # (AUTO) 8.3 K/ul (2.0-6.9); NEUTROPHILS % (AUTO) 76.8 % (42.2-75.2); PLATELET COUNT 408 10^3/uL (140-440); RDW COEFFICIENT OF VARIATION 13.9 % (11.6-14.8); RED BLOOD COUNT 4.08 10^6/ul (4.20-5.40); WHITE BLOOD COUNT 10.74 K/ul (4.6-10.2)
[2021-09-05] MEDS: LASIX TAB PO SCH (05:41)
[2021-09-05] MEDS: PRILOSEC PO SCH (05:41)
[2021-09-05 05:42] LABS: ALANINE AMINOTRANSFERASE 9.4 U/L (0-35); ALBUMIN 3.78 g/dL (3.5-5.0); ALKALINE PHOSPHATASE 70.4 U/L (53-141); ASPARTATE AMINO TRANSFERASE 17.2 U/L (14-36); BILIRUBIN,TOTAL 0.25 mg/dL (0.2-1.3); BLOOD UREA NITROGEN 22.4 mg/dL (7-17); CALCIUM 9.17 mg/dL (8.4-10.2); CARBON DIOXIDE 31.3 mmol/L (22-30.0); CHLORIDE 99.1 mmol/L (98-107); CREATININE 0.77 mg/dL (0.60-1.30); GLUCOSE 101.7 mg/dL (74-106); POTASSIUM 4.09 mmol/L (3.5-5.1); SODIUM 136.9 mmol/L (134.5-145); TOTAL PROTEIN 6.98 g/dL (6.3-8.2)
[2021-09-05] MEDS: COZAAR PO SCH (08:34)
[2021-09-05] MEDS: MICRO-K CAP PO SCH (08:34)
[2021-09-05] MEDS: ELIQUIS PO SCH (08:34)
[2021-09-05] MEDS: CARDIZEM CD PO SCH (08:34)
[2021-09-05] MEDS ORDERED: LIDOCAINE HCL 1% SDV IM STA (11:51)
[2021-09-05] MEDS ORDERED: ROCEPHIN 1 GM VIAL IM ONE (11:51)
[2021-09-05] MEDS: ROCEPHIN 1 GM/50 ML D5W 1 GM/50 ML BAG IV SCH (12:19)
--- NOTE | 2021-09-05 13:14 | CM.DICTOOL ---
ADMISSION: 09/02/21 15:57 DISCHARGE: SEPTEMBER 05, 2021 DATE OF SERVICE: 09/05/21 FINAL DIAGNOSIS ATRIAL FIBRILLATION, NEW ONSET CONGESTIVE HEART FAILURE COMPENSATED RESPIRATORY ACIDOSIS WITH MILD CO2 RETENTION AND HYPOXEMIA URINE TRACT INFECTION, E-COLI ORGANISM HYPERTENSION CAD ( PER CT, 09/02/21) CHRONIC ANEMIA TIA SEVERAL YEARS AGO CANCER, UNKNOWN SITE GERD BILATERAL PLEURAL EFFUSIONS, RIGHT GREATER THAN LEFT ( CT 09/02/21 ) NODULE IN RT UPPER LOBE, NONCALCIFIED PER CT 09/02/2021 (RECOMMEND F/U STUDY IN 3 MONTHS) ABDOMINAL SURGERY, (SUPPOSEDLY FOR CANCER) TKR, RIGHT ECHOCARDIOGRAM (09/05/2021) LAST VITALS Temp Pulse Resp BP Pulse Ox 97.1 F L 88 19 138/88 99 09/05/21 10:00 09/05/21 10:00 09/05/21 10:00 09/05/21 10:00 09/05/21 10:00 TAKE THESE MEDICATIONS AT HOME Apixaban (Apixaban 5 Mg Tab) 5 mg PO BIDWM ESDRAS (NEW RX) Last Admin: 09/05/21 08:34 Dose: 5 mg Documented by: Diltiazem HCl (Diltiazem Hcl 120 Mg Cap.Er.24h) 120 mg PO DAILY ESDRAS (NEW RX) Last Admin: 09/05/21 08:34 Dose: 120 mg Documented by: Furosemide (Furosemide 20 Mg Tablet) 20 mg PO QDAC ESDRAS (NEW RX) Last Admin: 09/05/21 05:41 Dose: 20 mg Documented by: Losartan Potassium (Losartan Potassium 25 Mg Tablet) 50 mg PO DAILY ESDRAS (NEW RX) Last Admin: 09/05/21 08:34 Dose: 50 mg Documented by: Omeprazole (Omeprazole 20 Mg Capsule.Dr) 40 mg PO QDAC ESDRAS Last Admin: 09/05/21 05:41 Dose: 40 mg Documented by: Potassium Chloride (Potassium Chloride 10 Meq Capsule.Er) 10 meq PO DAILYWM ESDRAS (NEW RX) Last Admin: 09/05/21 08:34 Dose: 10 meq Documented by: MACRODANTIN 100 MG PO DAILY FOR 7 DAYS (NEW RX) ALLERGIES No Known Allergies Allergy (Verified 11/30/14 04:20) DISCONTINUED MEDICATIONS NONE NEW PRESCRIPTIONS: MACRODANTIN 100 MG DAILY FOR 7 DAYS ELIQUIS 5 MG BID WITH MEAL CARDIZEM CD 120 MG DAILY LASIX 20 MG DAILY BEFORE BREAKFAST COZAAR 50 MG DAILY MICRO K 10 MEQ DAILY WITH MEAL SMOKING: NOT APPLICABLE DISEASE SPECIFIC EDUCATION: ATRIAL FIBRILLATION DISCUSSED IN DETAIL, VERBALLY AND WRITTEN INFORMATION PROVIDED NEW MEDICATIONS; INCLUDING ELIQUIS RISKS/BENEFITS OF ELIQUIS DISCUSSED AVOID USE OF NSAIDS OR ASPIRIN WITH USE OF ELIQUIS APPOINTMENT LAB REVIEW: 09/05/21 05:25 09/05/21 05:25 09/05/21 05:25: Sodium 136.9, Potassium 4.09, Chloride 99.1, Carbon Dioxide 31.3 H, Anion Gap 10.59, BUN 22.4 H, Creatinine 0.77, Estimated GFR (MDRD) 73.00, BUN/Creatinine Ratio 29.09, Glucose 101.7, Calcium 9.17, Total Bilirubin 0.25, AST 17.2, ALT 9.4, Alkaline Phosphatase 70.4, Total Protein 6.98, Albumin 3.78, Globulin 3.20, Albumin/Globulin Ratio 1.18 09/05/21 05:25: WBC 10.74 H, RBC 4.08 L, Hgb 11.5 L, Hct 34.7 L, MCV 85.0, MCH 28.2, MCHC 33.1, RDW Coeff of Jah 13.9, Plt Count 408, Immature Gran % (Auto) 0.3, Neut % (Auto) 76.8 H, Lymph % (Auto) 15.3, [place] % (Auto) 7.1, Eos % (Auto) 0.4, Baso % (Auto) 0.1, Neut # (Auto) 8.3 H, Lymph # (Auto) 1.6, [place] # (Auto) 0.8, Eos # (Auto) 0.0, Baso # (Auto) 0.0, Immature Gran # (Auto) 0.0 PLAN: DISCHARGE HOME DIET: HEART HEALTHY ACTIVITY: MAY RESUME TOLERATED USE CANE OR WALKER FOR ADDED STABILITY WHEN WALKING AN APPOINTMENT IS SCHEDULED WITH DR. GREEN/KIRILL CAMPO APRN/VAIBHAV RYAN APRN ON SEPTEMBER 15, 2021 AT 9 AM CODE STATUS: DO NOT RESUSCITATE MRS. GRAMAJO IS ALERT AND ORIENTED X 4. SHE IS FORGETFUL. MRS. GRAMAJO LIVES AT HOME WITH HER . SHE IS AGREEABLE TO PLANS FOR DISCHARGE HOME TODAY. MRS. GRAMAJO IS INDEPENDENT WITH ACTIVITIES OF DAILY LIVING. SHE TRANSFERS FROM THE BED TO THE CHAIR/CHAIR TO THE BED PER SELF. SHE HAS BEEN USING A ROLLING WALKER DURING HER HOSPITAL STAY TO AMBULATE TO THE BATHROOM AND IN THE HALLWAY. HER GAIT IS STEADY. HER REPORTS SHE HAS A CANE AND A WALKER AT HOME FOR HER USE. MEAL INTAKES ARE GOOD AT 75-100%. SHE IS CONTINENT OF BOWEL AND BLADDER. SHE DENIES PAIN OR BURNING WITH URINATION, BUT DOES REPORT URGENCY WITH URINATION. HYDRATION STATUS IS GOOD. SKIN IS INTACT. AREAS OF BRUISING ARE NOTED TO THE UPPER EXTREMITIES. CUAUHTEMOC GREEN MD
[2021-09-05 13:43] VITALS: BP 132/60; TEMP 97.3
--- NOTE | 2021-09-05 15:58 | US ---
EXAM: Bilateral carotid Doppler HISTORY: Dizziness, nausea, weakness TECHNIQUE: Carotid ultrasound using Duplex imaging with esquivel scale, color, and Doppler imaging. FINDINGS: RIGHT: (all velocities in cm/sec, peak systolic/peak diastolic). ICA: 125/31 ICA/CCA ratio:1.4 CCA: 87/17 ECA:81 Vertebral: Not visualized Plaque: Mild echogenic plaque in the bulb and mild mixed echogenic plaque in the ICA. LEFT: (all velocities in cm/sec, peak systolic/peak diastolic). ICA: 104/27 ICA/CCA ratio: 1.1 CCA: 90/18 ECA: 74 Vertebral: Antegrade, Plaque: Echogenic plaque in the carotid bulb and proximal ICA. IMPRESSION: 1. Right ICA velocity is consistent with 50 - 69% (moderate) stenosis. 2. Left ICA velocity is consistent with less than 50% narrowing. 3. Non-visualized right vertebral artery.
--- NOTE | 2021-09-08 10:54 | PN ---
DATE OF SERVICE: 09/04/21 SUBJECTIVE: 80 year old white female was seen with Nurse Practitioner. The patient had a new onset atrial fibrillation and CHF. The patient's condition seems to be improving. She feeling better. Education carried out about atrial fibrillation, Eliquis and the bleeding problem that could happen intracranial and stomach bleed. Advised not to take any non-steroidal anti-inflammatory. The patient's is noncompliant but has promised to be compliant TIME SPENT: More than 30 minutes. Plan and coordination of the patient's care discussed in the presence of nurse. SHAWANDA
--- NOTE | 2021-09-08 11:13 | PN ---
DATE OF SERVICE: 09/05/2021 SUBJECTIVE: 80 year old white female hospitalized with new onset atrial fibrillation and CHF. Her condition has improved. She has no symptoms of CHF. Atrial fibrillation is under control. The patient was seen and examined in the emergency room on admission. She belonged to hospitalist service and I picked up the patient to be taken care of as the patient had cardiac problem. After long discussion I accepted her as a patient as the patient as more or less promised that she would have regular followup. REVIEW OF SYSTEMS: CONSTITUTIONAL: No night sweats. No fatigue, malaise, lethargy. No fever or chills. HEENT: Eyes: No visual changes. No eye pain. No eye discharge. ENT: No runny nose. No epistaxis. No sinus pain. No sore throat. No odynophagia. No congestion. RESPIRATORY: No cough, no congestion. No hemoptysis. No shortness of breath. CARDIOVASCULAR: No angina symptoms. No CHF symptoms. No atypical chest pain for CAD. No palpitations. No PND. No orthopnea. GASTROINTESTINAL: No abdominal pain. No nausea or vomiting. No diarrhea or constipation. No hematemesis. No hematochezia. GENITOURINARY: No urgency. No frequency. No dysuria. No hematuria. No obstructive symptoms. No discharge. No pain. No significant abnormal bleeding. MUSCULOSKELETAL: No musculoskeletal pain; no joint swelling. NEUROLOGICAL: No headache. No neck pain. No syncope. No seizures. No dizziness. PSYCHIATRIC: Not anxious. No depression. No suicidal thoughts. No homicidal thoughts. SKIN: No rash. No lesions. No wounds. ENDOCRINE: No unexplained weight loss. No weight gain. HEMATOLOGIC/LYMPHATIC: No anemia. No purpura. No petechiae. No prolonged or excessive bleeding. No palpable lymph nodes. PHYSICAL EXAMINATION: VITAL SIGNS: Temperature 97.2, pulse 85, respiratory rate 18, blood pressure 150/56 and pulse ox 91% on room air. HEENT: Head normocephalic, atraumatic. Eyes: Extraocular muscles are intact. Pupils are equal, round and reactive to light and accommodation. Ears: No lesions. Nose appeared normal. Throat: No exudate or erythema. NECK: Supple. No JVD, no carotid bruit. No lymphadenopathy or thyromegaly. LUNGS: Decreased breath sounds but good air entry. Clear to auscultation. Percussion note normal. Chest symmetrical. HEART: S1, S2, no S3. No murmurs. No cyanosis or clubbing. No ascites. Pulses: Dorsalis pedis and posterior tibial pulses +1 to +2 bilaterally. ABDOMEN: Soft. Nontender. Bowel sounds active. No CVA tenderness. No mass felt. EXTREMITIES: Trace edema. Full range of motion of all extremities, equal. NEUROLOGIC: No focal deficit. Cranial nerves II through XII are grossly intact. No headache. No double vision. SKIN: Not dry. Intact. Turgor - normal. LYMPHATIC: No palpable lymph nodes/no lymphedema. MUSCULOSKELETAL: Normal joints with no swelling. Muscle tone is normal. LABS: hgb 11.9, hct 36, WBC 6,000 normal differential, creatinine 0.7, BUN 10. ASSESSMENT: 1. Atrial fibrillation under control with rate of 80-90 per minute. 2. CHF under control 3. Hypertension 4. Obesity 5. Dyslipidemia PLAN: 1. Discharge the patient home on Cozaar, Lasix ,Potassium and Cardizem 2. All the medications discussed 3. Eliquis is another medication the patient is going to be one. Discussed in detail. No non-steroidal antiinflammatory with Eliquis. GI bleed and intracranial bleed discussed. 3. TIME SPENT: More than 30 minutes. Plan and coordination of the patient's care discussed in the presence of nurse. SHAWANDA
--- NOTE | 2021-09-08 11:28 | PN ---
09/02/2021: Level 5 09/03-09/04: A couple of days after admission they were extensive, rest of them are intermediate. 09/05/2021: D as in discharge MTDD
--- NOTE | 2021-09-08 11:28 | DS ---
DATE OF SERVICE: 09/05/2021 FINAL DIAGNOSIS: ATRIAL FIBRILLATION, NEW ONSET CONGESTIVE HEART FAILURE COMPENSATED RESPIRATORY ACIDOSIS WITH MILD CO2 RETENTION AND HYPOXEMIA URINE TRACT INFECTION, E-COLI ORGANISM HYPERTENSION CAD ( PER CT, 09/02/21) CHRONIC ANEMIA TIA SEVERAL YEARS AGO CANCER, UNKNOWN SITE GERD BILATERAL PLEURAL EFFUSIONS, RIGHT GREATER THAN LEFT ( CT 09/02/21 ) NODULE IN RT UPPER LOBE, NONCALCIFIED PER CT 09/02/2021 (RECOMMEND F/U STUDY IN 3 MONTHS) ABDOMINAL SURGERY, (SUPPOSEDLY FOR CANCER) TKR, RIGHT ECHOCARDIOGRAM (09/05/2021) LAST VITALS: Temp Pulse Resp BP Pulse Ox 97.1 F L 88 19 138/88 99 09/05/21 10:00 09/05/21 10:00 09/05/21 10:00 09/05/21 10:00 09/05/21 10:00 DISCHARGE INSTRUCTIONS: DISCHARGE HOME. AN APPOINTMENT IS SCHEDULED WITH DR. GREEN/KIRILL CAMPO APRN/VAIBHAV RYAN APRN ON SEPTEMBER 15, 2021 AT 9 AM. CODE STATUS: DO NOT RESUSCITATE. TAKE THESE MEDICATIONS AT HOME: Apixaban (Apixaban 5 Mg Tab) 5 mg PO BIDWM ESDRAS (NEW RX) Last Admin: 09/05/21 08:34 Dose: 5 mg Documented by: Diltiazem HCl (Diltiazem Hcl 120 Mg Cap.Er.24h) 120 mg PO DAILY ESDRAS (NEW RX) Last Admin: 09/05/21 08:34 Dose: 120 mg Documented by: Furosemide (Furosemide 20 Mg Tablet) 20 mg PO QDAC ESDRAS (NEW RX) Last Admin: 09/05/21 05:41 Dose: 20 mg Documented by: Losartan Potassium (Losartan Potassium 25 Mg Tablet) 50 mg PO DAILY ESDRAS (NEW RX) Last Admin: 09/05/21 08:34 Dose: 50 mg Documented by: Omeprazole (Omeprazole 20 Mg Capsule.Dr) 40 mg PO QDAC ESDRAS Last Admin: 09/05/21 05:41 Dose: 40 mg Documented by: Potassium Chloride (Potassium Chloride 10 Meq Capsule.Er) 10 meq PO DAILYWM ESDRAS (NEW RX) Last Admin: 09/05/21 08:34 Dose: 10 meq Documented by: MACRODANTIN 100 MG PO DAILY FOR 7 DAYS (NEW RX) ALLERGIES: No Known Allergies Allergy (Verified 11/30/14 04:20) DISCONTINUED MEDICATIONS: NONE NEW PRESCRIPTIONS: MACRODANTIN 100 MG DAILY FOR 7 DAYS ELIQUIS 5 MG BID WITH MEAL CARDIZEM CD 120 MG DAILY LASIX 20 MG DAILY BEFORE BREAKFAST COZAAR 50 MG DAILY MICRO K 10 MEQ DAILY WITH MEAL SMOKING: NOT APPLICABLE DISEASE SPECIFIC EDUCATION: ATRIAL FIBRILLATION DISCUSSED IN DETAIL, VERBALLY AND WRITTEN INFORMATION PROVIDED NEW MEDICATIONS; INCLUDING ELIQUIS RISKS/BENEFITS OF ELIQUIS DISCUSSED AVOID USE OF NSAIDS OR ASPIRIN WITH USE OF ELIQUIS APPOINTMENT LAB REVIEW: 09/05/21 05:25 09/05/21 05:25 09/05/21 05:25: Sodium 136.9, Potassium 4.09, Chloride 99.1, Carbon Dioxide 31.3 H, Anion Gap 10.59, BUN 22.4 H, Creatinine 0.77, Estimated GFR (MDRD) 73.00, BUN/Creatinine Ratio 29.09, Glucose 101.7, Calcium 9.17, Total Bilirubin 0.25, AST 17.2, ALT 9.4, Alkaline Phosphatase 70.4, Total Protein 6.98, Albumin 3.78, Globulin 3.20, Albumin/Globulin Ratio 1.18 09/05/21 05:25: WBC 10.74 H, RBC 4.08 L, Hgb 11.5 L, Hct 34.7 L, MCV 85.0, MCH 28.2, MCHC 33.1, RDW Coeff of Jah 13.9, Plt Count 408, Immature Gran % (Auto) 0.3, Neut % (Auto) 76.8 H, Lymph % (Auto) 15.3, [place] % (Auto) 7.1, Eos % (Auto) 0.4, Baso % (Auto) 0.1, Neut # (Auto) 8.3 H, Lymph # (Auto) 1.6, [place] # (Auto) 0.8, Eos # (Auto) 0.0, Baso # (Auto) 0.0, Immature Gran # (Auto) 0.0 DIET: HEART HEALTHY ACTIVITY: MAY RESUME TOLERATED USE CANE OR WALKER FOR ADDED STABILITY WHEN WALKING HOSPITAL COURSE: 80 year old white female was hospitalized through the emergency room as the patient came with atrial fibrillation with rapid ventricular response. The patient had shortness of breath and chest tightness for 7 days. The physician had not seen this patient for more than a year and a half. Followed by Dr. Patel. She says that she has been very compliant of followup with any doctors. She was given Cardizem IV 20mg and then 120mg PO. A dose of Lanoxin was given. Lasix was started. The patient's condition improved. She required Cozaar for the control of her blood pressure. At the time of discharge had no symptoms of CHF. Her atrial fibrillation was very well under control with rate of 80-90 per minute. Her echo showed hypokinetic septal wall likely from left bundle branch block with ejection fraction 45%. LV size was normal. LA size is enlarged. The patient has calcified mitral valve anulus. The patient agreed to take Eliquis. Eliquis side effects discussed with the patient with intracranial bleed and GI bleed. She is strongly advised not to take any nonsteroidal antiinflammatory. Complications discussed. CHADS VASC score is 4. The patient had some retention of CO2 with what looks like compensated respiratory acidosis and had not smoked. Both parents had smoked and she was secondary hand smoker. Strongly was advised to followup with me to be seen in 5-7 days. Before discharge she will under carotid scan before discharge, she has agreed to Dobutamine stress echo done as an outpatient. CT scan of the chest had shown coronary artery disease. CONDITION: Stable PROGNOSIS: Depends on her compliance. The patient has signed DNR. TIME SPENT: More than 60 minutes. BOBD
--- NOTE | 2021-09-09 06:55 | ECHO2D ---
Date of Exam: 09/05/2021 Ordering Physician: DR. GREEN/ DR. HINOJOSA Room #: [id number] Reason for Echo: NEW ONSET ATRIAL FIBRILLATION, CONGESTIVE HEART FAILURE M-Mode Normal Adult Results LV Dimensions Normal Adult Results AoV Opening excursions >1.6 >1.4 LVEDD-base- 3.5-5.8 4.5 Ao root dimensions 2.0-3.7 2.7 LVESD-base- 3.1-4.6 L. Atrium dimensions 1.9-3.8 5.2 Post. Wall thickness 0.8-1.1 1.3 IV septum (thickness) 0.7-1.2 1.4 Post. Wall excursion 0.72-1.3 NORMAL Septal motion 0.4 Systolic motion R. Ventricular cavity 1.5-2.0 NORMAL LVEF 60% 45% Paradoxical septal wall motion NORMAL 2-D : CALCIFIC MITRAL VALVE ANNULUS, ENLARGED LEFT ATRIAL CAVITY, HYPOKINETIC SEPTUM, LEFT VENTRICLE SIZE IS NORMAL, NO EFFUSION, NO THROMBUS M-MODE: MV: CALCIFIC MITRAL VALVE ANNULUS AV: NORMAL TV: NORMAL PV: NORMAL CHAMBER SIZE: ENLARGED LEFT ATRIAL CAVITY WALL MOTION: ABNORMAL SEPTAL MOTION (LEFT BUNDLE BRANCH BLOCK), HYPOKINETIC PERICARDIUM: NORMAL INTERPRETATION: 1. LEFT VENTRICULAR HYPERTROPHY WITH ENLARGED LEFT ATRIAL CAVITY (5.2CM) 2. HYPOKINETIC SEPTAL WALL (LEFT BUNDLE BRANCH BLOCK) EJECTION FRACTION 45% 3. CALCIFIC MITRAL VALVE ANNULUS 4. LEFT VENTRICLE SIZE NORMAL MTDD
== END 2021-09-05 16:30 | disposition home or self-care (01) | DRG 308 ==
LOC: ED 11:15 → MEDSURG A 15:57
PROVIDERS: ADMIT Internal Medicine; ATTEND Internal Medicine
DX: J91.8 Pleural effusion in other conditions classified elsewhere; E87.2 Acidosis; Z20.822 Contact with and (suspected) exposure to COVID-19; D64.9 Anemia, unspecified; B96.20 Unspecified Escherichia coli [E. coli] as the cause of diseases classified elsewhere; J96.21 Acute and chronic respiratory failure with hypoxia; I48.91 Unspecified atrial fibrillation; C80.1 Malignant (primary) neoplasm, unspecified; R91.1 Solitary pulmonary nodule; I50.9 Heart failure, unspecified; I25.10 Atherosclerotic heart disease of native coronary artery without angina pectoris; I44.7 Left bundle-branch block, unspecified; N39.0 Urinary tract infection, site not specified

== ENCOUNTER 2021-11-01 10:45 | Inpatient (IN) ==
[2021-11-01 11:35] LABS: BASOPHILS % (AUTO) 0.3 % (0.0-3.0); HEMATOCRIT 33.4 % (37.0-47.0); HEMOGLOBIN 11.1 g/dl (12.0-16.0); IMMATURE GRANULOCYTE # (AUTO) 0.1 (0.0-1.0); IMMATURE GRANULOCYTE % (AUTO) 0.5 % (0.0-5.0); LYMPHOCYTES # (AUTO) 0.5 K/uL (0.60-3.4); LYMPHOCYTES % (AUTO) 3.7 (10.0-50.0); MEAN CORPUSCULAR HEMOGLOBIN 28.1 pg (27.0-31.0); MEAN CORPUSCULAR HGB CONC 33.2 (31.8-35.4); MEAN CORPUSCULAR VOLUME 84.6 fl (81.0-99.0); MONOCYTES # (AUTO) 1.2 K/uL (0.4-2.0); MONOCYTES % (AUTO) 8.8 (0-10); NEUTROPHILS # (AUTO) 11.4 K/ul (2.0-6.9); NEUTROPHILS % (AUTO) 86.7 % (42.2-75.2); PLATELET COUNT 247 10^3/uL (140-440); RED BLOOD COUNT 3.95 10^6/ul (4.20-5.40); WHITE BLOOD COUNT 13.13 K/ul (4.6-10.2)
[2021-11-01 11:47] LABS: ALANINE AMINOTRANSFERASE 10.4 U/L (0-35); ALBUMIN 3.68 g/dL (3.5-5.0); ALKALINE PHOSPHATASE 80.3 U/L (53-141); ASPARTATE AMINO TRANSFERASE 16.5 U/L (14-36); BLOOD UREA NITROGEN 25.5 mg/dL (7-17); CALCIUM 8.13 mg/dL (8.4-10.2); CARBON DIOXIDE 23.4 mmol/L (22-30.0); CHLORIDE 100.8 mmol/L (98-107); CREATININE 1.16 mg/dL (0.60-1.30); GLUCOSE 127.3 mg/dL (74-106); POTASSIUM 3.98 mmol/L (3.5-5.1); SODIUM 132.6 mmol/L (134.5-145); TOTAL PROTEIN 7.08 g/dL (6.3-8.2)
[2021-11-01 11:59] LABS: TROPONIN I 0.014 ng/ml (0.0000-0.120)
--- NOTE | 2021-11-01 12:13 | DI ---
EXAM: One view chest. HISTORY: Dyspnea COMPARISON: 09/02/2021 chest x-ray. FINDINGS: The cardiac silhouette is enlarged. Volume overload is present. There is no focal infilt rate. There is no pleural effusion present. Degenerative changes are present throughout the osseous structures. IMPRESSION: Cardiomegaly with central pulmonary vascular congestion.
[2021-11-01 12:53] LABS: BORDETELLA PARAPERTUSSIS (PCR) NOT DETECTED (NOT DETECT); BORDETELLA PERTUSSIS (PCR) NOT DETECTED (NOT DETECT); CHLAMYDIA PNEUMONIAE (PCR) NOT DETECTED (NOT DETECT); CORONAVIRUS 229E (PCR) NOT DETECTED (NOT DETECT); CORONAVIRUS HKU1 (PCR) NOT DETECTED (NOT DETECT); CORONAVIRUS NL63 (PCR) NOT DETECTED (NOT DETECT); CORONAVIRUS OC43 (PCR) NOT DETECTED (NOT DETECT); HUMAN METAPNEUMOVIRUS (PCR) NOT DETECTED (NOT DETECT); HUMAN RHINOVIRUS/ENTEROV (PCR) NOT DETECTED (NOT DETECT); INFLUENZA B (PCR) NOT DETECTED (NOT DETECT); MYCOPLASMA PNEUMONIAE (PCR) NOT DETECTED (NOT DETECT); PARAINFLUENZA VIRUS 1 (PCR) NOT DETECTED (NOT DETECT); PARAINFLUENZA VIRUS 2 (PCR) NOT DETECTED (NOT DETECT); PARAINFLUENZA VIRUS 3 (PCR) NOT DETECTED (NOT DETECT); PARAINFLUENZA VIRUS 4 (PCR) NOT DETECTED (NOT DETECT); RESPIRATORY SYNCYTIAL V (PCR) NOT DETECTED (NOT DETECT); SARS_COV_2 (PCR) NOT DETECTED (NOT DETECT)
[2021-11-01 13:45] LABS: ADENOVIRUS (PCR) NOT DETECTED (NOT DETECT)
[2021-11-01] MEDS ORDERED: LASIX IVP ONE (14:08)
[2021-11-01] MEDS ORDERED: TYLENOL PO PRN (14:09)
[2021-11-01] MEDS ORDERED: NITROSTAT SL PRN (14:09)
[2021-11-01] MEDS ORDERED: ATROPINE SULFATE PFS IVP PRN (14:09)
--- NOTE | 2021-11-01 14:16 | ED.PDOC ---
General ED Provider: Dr. MACK CELESTIN Chief Complaint: Respiratory Complaint Stated Complaint: dyspnea for 2 days, no chest pain, cough, or fever. DNR status Time Seen by Provider: 11/01/21 11:07 Mode of Arrival: Wheelchair Information Source: Patient Exam Limitations: No limitations Primary Care Provider: JAMES HINOJOSA Nursing and Triage Documentation Reviewed and Agree: Yes Does patient meet sepsis criteria?: No System Inflammatory Response Syndrome: Not Applicable Sepsis Protocol: For patient's 13 years and over: Temp is 96.8 and below OR 101 and greater Pulse >90 BPM Resp >20/minute Acutely Altered Mental Status Are patient's symptoms suggestive of a new infection, such as: -Pneumonia -Skin, Soft Tissue -Endocarditis -UTI -Bone, Joint Infection -Implantable Device -Acute Abdominal Infection -Wound Infection -Meningitis -Blood Stream Catheter Infection -Unknown Respiratory Complaint Exam Shortness of Air Complaint/Exam Onset/Duration: 2 d Symptoms Are: Still present Timing: Constant Initial Severity: Moderate Current Severity: Moderate Character: Reports Dyspnea at rest and Dyspnea on exertion Aggravating: Reports Movement and Deep breaths Alleviating: Reports Upright position Associated Signs and Symptoms: Denies Cough, Wheezing, Chest pain with cough, C hest pain, Fever, Chills, Diaphoresis, Nasal congestion, Dizziness, Calf pain, Calf swelling, Edema, Rapid breathing, Labored breathing or Decreased intake Related History: Reports Similar episode (hx mild CHF) History of Healthcare-Acquired Pneumonia: No Pulmonary Embolism Risk Factors: Reports None Cardiac Risk Factors: Reports Hypertension Pseudomonas Risk Factors: Reports None Tuberculosis Risk Factors: Reports None Home Oxygen Use: No Recent Stress Test: No Recent Echo/LV Function: No Respiratory Distress: Moderate Stridor Present: No Tracheal Deviation: No Subcutaneous Emphysema: No Accessory Muscle Use: No Retractions: Not Present Diminished Breath Sounds: Yes Prolonged Expiratory Phase: No Unable to Speak Full Sentences: No Fatigue: Yes Leg Swelling: Yes Grunting Respirations: No Kussmaul Respirations: No Differential Diagnoses: CHF and Pulmonary Edema Review of Systems Review Of Systems Constitutional: Reports No symptoms Eyes: Reports No symptoms Ears, Nose, Mouth, Throat: Reports No symptoms Respiratory: Reports Orthopnea and Short of air Cardiac: Reports Irregular heart rate GI: Reports No symptoms : Reports No symptoms Musculoskeletal: Reports No symptoms Skin: Reports No symptoms Neurological: Reports No symptoms Endocrine: Reports No symptoms Hematologic/Lymphatic: Reports No symptoms All Other Systems: Reviewed and Negative [facility] Medical History (Updated 09/03/21 @ 15:56 by DEMETRIS RODRIGUEZ) Cancer Family History (Updated 09/02/21 @ 17:10 by OSMANY STEIN, RICHARD) Mother Cardiovascular disease FATHER Cardiovascular disease Social History (Updated 09/02/21 @ 17:12 by OSMANY STEIN RN) Smoking and tobacco status: Never smoker Alcohol intake: former Surgical History (Updated 09/03/21 @ 15:56 by DEMETRIS RODRIGUEZ) Hx of total knee arthroplasty Female Reproductive History Menstrual Hx Hysterectomy: Yes Hx Tubal Ligation: No Physical Exam Physical Exam Appearance: Reports Well-appearing Ill-appearing: Moderate Pain Distress: Mild Eyes: Reports DEBBIE ENT: Reports Oropharynx normal Neck: Supple Respiratory: Reports Airway patent, Breath sounds diminished and Crackles Cardiovascular: Reports Irregular rhythm and Tachycardia (110) GI/: Reports Soft and Nontender Musculoskeletal: Reports Normal strength and ROM intact Skin: Reports Warm and Dry Neurological: Reports Sensation intact, Motor intact and Alert Psychiatric: Reports Affect appropriate and Mood appropriate Interpretation Radiology Interpretation Radiology Interpretation By: Radiologist Radiology Results: Positive Exam Interpreted: Portable CXR Xray Comments: CMG with mild CHF EKG Interpretation Time of EKG #1: 12:46 Rate: Tachy (107) Rhythm: Other (a-fib) Ectopy: None Cameron: NL ST Segment: Normal Interpretation: Afib with VR 107, chronic LBBB Physician Notification Case Discussed Physician Notified: Dr. Hernández Time of Notification: 14:00 Comments: Admit for IV lasix. Critical Care Note Critical Care Note Total Critical Care Time (mins): 30 Comments: A-fib with RVR and CHF management. Course Course Hematology/Chemistry: 11/01/21 11:30 11/01/21 11:30 Orders, Labs, Meds: Lab Review 11/01/21 11/01/21 11/01/21 11:30 11:30 12:45 WBC 13.13 H RBC 3.95 L Hgb 11.1 L Hct 33.4 L MCV 84.6 MCH 28.1 MCHC 33.2 RDW Coeff of Jah 14.0 Plt Count 247 Immature Gran % (Auto) 0.5 Neut % (Auto) 86.7 H Lymph % (Auto) 3.7 L Andrew % (Auto) 8.8 Eos % (Auto) 0.0 Baso % (Auto) 0.3 Neut # (Auto) 11.4 H Lymph # (Auto) 0.5 L Andrew # (Auto) 1.2 Eos # (Auto) 0.0 Baso # (Auto) 0.0 Immature Gran # (Auto) 0.1 Sodium 132.6 L Potassium 3.98 Chloride 100.8 Carbon Dioxide 23.4 Anion Gap 12.38 BUN 25.5 H Creatinine 1.16 Estimated GFR (MDRD) 45.00 BUN/Creatinine Ratio 21.98 Glucose 127.3 H Calcium 8.13 L Total Bilirubin 1.00 AST 16.5 ALT 10.4 Alkaline Phosphatase 80.3 Troponin I 0.014 NT-Pro-B Natriuret Pep 2550.000 H Total Protein 7.08 Albumin 3.68 Globulin 3.40 Albumin/Globulin Ratio 1.08 Adenovirus (PCR) Not detected B. pertussis DNA (PCR) Not detected B.parapertussis DNA PCR Not detected C. pneumoniae DNA (PCR) Not detected Coronavirus OC43 (PCR) Not detected Coronavirus HKU1 (PCR) Not detected Coronavirus 229E (PCR) Not detected Coronavirus NL63 (PCR) Not detected Human Metapneumovir PCR Not detected Influenza Type A (PCR) Not detected Influenza B (RT-PCR) Not detected M. pneumoniae (PCR) Not detected Parainfluenza 1 (PCR) Not detected Parainfluenza 2 (PCR) Not detected Parainfluenza 3 (PCR) Not detected Parainfluenza 4 (PCR) Not detected RSV (PCR) Not detected Entero/Rhino (PCR) Not detected SARS-CoV-2 (PCR) Not detected Orders Category Date Time Status ADMIT PATIENT INPATIENT .TO MEDS[facility]G (MONITORED BED) ADMISSION 11/01/21 14:02 Active EKG-(ED ONLY) Stat CARDIO 11/01/21 12:37 Completed TELEMETRY MONITORING TELE CARE 11/01/21 14:03 Active CBC W/ AUTO DIFF Stat LAB 11/01/21 11:30 Completed COMPREHENSIVE METABOLIC PANEL Stat LAB 11/01/21 11:30 Completed NT-PROBNP Stat LAB 11/01/21 11:30 Completed RESPIRATORY PANEL 2.1 (PCR) Stat LAB 11/01/21 12:45 Completed TROPONIN I Stat LAB 11/01/21 11:30 Completed Apixaban [Eliquis] MEDS 11/01/21 21:00 Ordered 5 mg PO BID Atorvastatin Calcium [Lipitor] MEDS 11/01/21 21:00 Ordered 20 mg PO BEDTIME Diltiazem HCl [Cardizem Cd] MEDS 11/02/21 09:00 Ordered 120 mg PO DAILY Losartan Potassium [Cozaar] MEDS 11/02/21 09:00 Ordered 50 mg PO DAILY Omeprazole [Prilosec] MEDS 11/02/21 09:00 Ordered 40 mg PO DAILY Potassium Chloride [Micro-K Cap] MEDS 11/02/21 09:00 Ordered 10 meq PO DAILY CHEST, 1V AP ONLY Stat RADS 11/01/21 11:12 Completed Medications Generic Name Dose Route Start Last Admin Trade Name Freq PRN Reason Stop Dose Admin Acetaminophen 650 mg 11/01/21 14:09 Acetaminophen 325 Mg Tablet PO Q4H PRN Headache Apixaban 5 mg 11/01/21 21:00 Apixaban 5 Mg Tab PO BID ESDRAS Atorvastatin Calcium 20 mg 11/01/21 21:00 Atorvastatin Calcium 20 Mg Tablet PO BEDTIME ESDRAS Atropine Sulfate 0.5 mg 11/01/21 14:09 Atropine Sulfate Inj 1 Mg/10 Ml Disp.Syrin IVP ONCE PRN Symptomatic Bradycardia Diltiazem HCl 120 mg 11/02/21 09:00 Diltiazem Hcl 120 Mg Cap.Er.24h PO DAILY [facility] Losartan Potassium 50 mg 11/02/21 09:00 Losartan Potassium 25 Mg Tablet PO DAILY ESDRAS Nitroglycerin 0.4 mg 11/01/21 14:09 Nitroglycerin 0.4 Mg Tab.Subl SL Q5MIN X 3 DOSES PRN Chest Pain Omeprazole 40 mg 11/02/21 09:00 Omeprazole 20 Mg Capsule.Dr PO DAILY [facility] Potassium Chloride 10 meq 11/02/21 09:00 Potassium Chloride 10 Meq Capsule.Er PO DAILY [facility] Sodium Chloride 1 syr 11/01/21 21:00 0.9% Sodium Chloride 10 Ml Disp.Syrin IVF Q8HR ESDRAS Discontinued Medications Generic Name Dose Route Start Last Admin Trade Name Freq PRN Reason Stop Dose Admin Furosemide 20 mg 11/01/21 14:08 Furosemide Inj 20 Mg/2 Ml Vial IVP 11/01/21 14:09 ONCE ONE Vital Signs: Temp Pulse Resp BP Pulse Ox 11/01/21 10:45 98.7 F 116 H 26 H 104/67 92 L Discharge Plan Discharge Patient Disposition: ADMITTED INPATIENT ED Provider: MACK CELESTIN Condition: Stable Physician Progress Note: Mod. CHF flare, A-fib with mild RVR. Admit per Dr. Hernández. DNR.[]
[2021-11-01 14:39] LABS: CREATINE KINASE 35.1 U/L (30-135)
[2021-11-01 14:52] LABS: TROPONIN I 0.014 ng/ml (0.0000-0.120)
[2021-11-01 15:47] VITALS: BMI 34.2
[2021-11-01] MEDS ORDERED: DECADRON IM ONE ×2 (17:03→17:30)
[2021-11-01 17:25] LABS: BILIRUBIN,URINE Negative (NEGATIVE); CLARITY,URINE Cloudy (CLEAR); COLOR,URINE Yellow (YELLOW); GLUCOSE, URINE (UA) Negative (NEGATIVE); KETONES,URINE Negative (NEGATIVE); LEUKOCYTE ESTERASE ,URINE 1+ (NEGATIVE); NITRITE,URINE Negative (NEGATIVE); PH,URINE 8.5 (5-9); PROTEIN,URINE 2+ (NEGATIVE); URINE, BLOOD Negative (NEGATIVE)
[2021-11-01 17:34] LABS: BACTERIA,URINE 4+ (NOT PRESENT); TRIPLE PHOSPHATE CRYSTAL,UR 1+ (NOT PRESENT)
[2021-11-01] MEDS ORDERED: ROCEPHIN 1 GM/50 ML D5W 1 GM/50 ML BAG IV SCH (19:00)
[2021-11-01] MEDS: LIPITOR PO SCH (21:11)
[2021-11-01] MEDS: ELIQUIS PO SCH (21:11)
[2021-11-02 05:00] LABS: HEMATOCRIT 30.4 % (37.0-47.0); IMMATURE GRANULOCYTE % (AUTO) 0.4 % (0.0-5.0); LYMPHOCYTES # (AUTO) 0.4 K/uL (0.60-3.4); LYMPHOCYTES % (AUTO) 5.4 (10.0-50.0); MEAN CORPUSCULAR HEMOGLOBIN 27.8 pg (27.0-31.0); MEAN CORPUSCULAR HGB CONC 32.9 (31.8-35.4); MEAN CORPUSCULAR VOLUME 84.4 fl (81.0-99.0); MONOCYTES # (AUTO) 0.4 K/uL (0.4-2.0); MONOCYTES % (AUTO) 5.9 (0-10); NEUTROPHILS # (AUTO) 6.4 K/ul (2.0-6.9); NEUTROPHILS % (AUTO) 88.3 % (42.2-75.2); PLATELET COUNT 236 10^3/uL (140-440); RDW COEFFICIENT OF VARIATION 13.6 % (11.6-14.8); WHITE BLOOD COUNT 7.24 K/ul (4.6-10.2)
[2021-11-02 05:11] LABS: CREATINE KINASE 51.7 U/L (30-135)
[2021-11-02 05:13] LABS: ALANINE AMINOTRANSFERASE 10.4 U/L (0-35); ALBUMIN 3.32 g/dL (3.5-5.0); ALKALINE PHOSPHATASE 65.4 U/L (53-141); BILIRUBIN,TOTAL 0.55 mg/dL (0.2-1.3); BLOOD UREA NITROGEN 31.3 mg/dL (7-17); CALCIUM 8.13 mg/dL (8.4-10.2); CARBON DIOXIDE 26.2 mmol/L (22-30.0); CHLORIDE 102.2 mmol/L (98-107); CREATININE 1.03 mg/dL (0.60-1.30); GLUCOSE 141.8 mg/dL (74-106); POTASSIUM 4.02 mmol/L (3.5-5.1); TOTAL PROTEIN 6.48 g/dL (6.3-8.2)
[2021-11-02 05:26] LABS: TROPONIN I < 0.012 ng/ml (0.0000-0.120)
[2021-11-02] MEDS: COZAAR PO SCH (09:19)
[2021-11-02] MEDS: CARDIZEM CD PO SCH (09:19)
[2021-11-02] MEDS: MICRO-K CAP PO SCH (09:19)
[2021-11-02] MEDS: ELIQUIS PO SCH ×2 (09:19→20:24)
[2021-11-02] MEDS: PRILOSEC PO SCH (09:19)
[2021-11-02] MEDS: LIPITOR PO SCH (20:24)
[2021-11-02] MEDS ORDERED: ROCEPHIN 1 GM/50 ML D5W 1 GM/50 ML BAG IV SCH (21:00)
[2021-11-02 22:06] VITALS: TEMP 97.5
[2021-11-03 05:46] VITALS: BP 142/90
[2021-11-03] MEDS: PRILOSEC PO SCH (06:14)
[2021-11-03 07:12] LABS: BASOPHILS % (AUTO) 0.1 % (0.0-3.0); HEMATOCRIT 33.4 % (37.0-47.0); IMMATURE GRANULOCYTE # (AUTO) 0.1 (0.0-1.0); IMMATURE GRANULOCYTE % (AUTO) 0.8 % (0.0-5.0); LYMPHOCYTES # (AUTO) 0.8 K/uL (0.60-3.4); LYMPHOCYTES % (AUTO) 6.6 (10.0-50.0); MEAN CORPUSCULAR HEMOGLOBIN 27.6 pg (27.0-31.0); MEAN CORPUSCULAR HGB CONC 32.9 (31.8-35.4); MEAN CORPUSCULAR VOLUME 83.9 fl (81.0-99.0); MONOCYTES # (AUTO) 0.9 K/uL (0.4-2.0); MONOCYTES % (AUTO) 7.4 (0-10); NEUTROPHILS # (AUTO) 10.2 K/ul (2.0-6.9); NEUTROPHILS % (AUTO) 85.1 % (42.2-75.2); PLATELET COUNT 327 10^3/uL (140-440); RDW COEFFICIENT OF VARIATION 13.5 % (11.6-14.8); RED BLOOD COUNT 3.98 10^6/ul (4.20-5.40); WHITE BLOOD COUNT 11.96 K/ul (4.6-10.2)
[2021-11-03 07:25] LABS: ALBUMIN 3.4 g/dL (3.5-5.0); BILIRUBIN,TOTAL 0.3 mg/dL (0.2-1.3); CALCIUM 8.4 mg/dL (8.4-10.2); POTASSIUM 4.1 mmol/L (3.5-5.1)
[2021-11-03] MEDS ORDERED: CEFTIN PO ONE (08:33)
[2021-11-03] MEDS ORDERED: LASIX TAB PO SCH (09:00)
[2021-11-03] MEDS: COZAAR PO SCH (09:12)
[2021-11-03] MEDS: CARDIZEM CD PO SCH (09:12)
[2021-11-03] MEDS: ELIQUIS PO SCH (09:13)
[2021-11-03] MEDS: MICRO-K CAP PO SCH (09:13)
--- NOTE | 2021-11-03 09:59 | PCM.PROG ---
Attending Provider: ATTENDING PROVIDER: Dr. CUAUHTEMOC GREEN DATE OF SERVICE: 11/03/21 SUBJECTIVE: This 80 year old /WHITE F was hospitalized 11/01/21 with shortness of breath, CHF and UTI. Condition is improving. Feeling better. No symptoms of CHF. Appetite has improved. REVIEW OF SYSTEMS: CONSTITUTIONAL: No night sweats. No fatigue, malaise, lethargy. No fever or chills. HEENT: Eyes: No visual changes. No eye pain. No eye discharge. ENT: No runny nose. No epistaxis. No sinus pain. No odynophagia. No congestion. RESPIRATORY: No cough, no congestion. No hemoptysis. No shortness of breath. CARDIOVASCULAR: No angina symptoms. No CHF symptoms. No atypical chest pain for CAD. No palpitations. No orthopnea.. GASTROINTESTINAL: No abdominal pain. No nausea or vomiting. No diarrhea or constipation. No hematemesis. No hematochezia. GENITOURINARY: No urgency. No frequency. No dysuria. No hematuria. No obstructive symptoms. No discharge. No pain. No significant abnormal bleeding. MUSCULOSKELETAL: No musculoskeletal pain; no joint swelling. NEUROLOGICAL: Awake, alert, oriented to time, place and person. No headache. No neck pain. No syncope. No seizures. No dizziness. PSYCHIATRIC: Not anxious. No depression. No suicidal thoughts. No homicidal thoughts. SKIN: No rash. No lesions. No wounds. ENDOCRINE: No unexplained weight loss. No weight gain. HEMATOLOGIC/LYMPHATIC: No anemia. No purpura. No petechiae. No prolonged or excessive bleeding. No palpable lymph nodes. PHYSICAL EXAMINATION: GENERAL: The patient is awake, alert and oriented, lying in bed in no distress. VITAL SIGNS: Temperature 97.5 F, Pulse 105, Respiratory Rate 20, BP 142/90, Pulse Ox 98% HEENT: Head normocephalic, atraumatic. Eyes: Extraocular muscles are intact. Pupils are equal, round and reactive to light and accommodation. Ears: No lesions. Nose appeared normal. Throat: No exudate or erythema. NECK: Supple. No JVD, no carotid bruit. No lymphadenopathy or thyromegaly. LUNGS: Clear to auscultation. Percussion note normal. Chest symmetrical. HEART: S1, S2, no S3. No murmurs. No cyanosis or clubbing. No ascites. Pulses: Dorsalis pedis and posterior tibial pulses +1 to +2 both sides. ABDOMEN: Soft. Non-tender. Bowel sounds active. No CVA tenderness. No mass felt. EXTREMITIES: No edema. Full range of motion of all extremities, equal. NEUROLOGIC: No focal deficit. Cranial nerves II through XII are grossly intact. No headache, no double vision or headache. SKIN: Warm and dry. Intact. Turgor-normal. LYMPHATIC: No palpable lymph nodes/no lymphedema. MUSCULOSKELETAL: Normal joints with no swelling. Muscle tone is normal. LAB REVIEW: 11/03/21 07:06 11/03/21 07:06 11/03/21 07:06: Sodium 133.0 L, Potassium 4.10, Chloride 100.0, Carbon Dioxide 27.0, Anion Gap 10.10, BUN 36.0 H, Creatinine 1.00, Estimated GFR (MDRD) 54.00, BUN/Creatinine Ratio 36.00, Glucose 111.0 H, Calcium 8.40, Total Bilirubin 0.30, AST 20.0, ALT 15.0, Alkaline Phosphatase 78.0, Total Protein 7.00, Albumin 3.40 L, Globulin 3.60, Albumin/Globulin Ratio 0.94 11/03/21 07:06: WBC 11.96 H, RBC 3.98 L, Hgb 11.0 L, Hct 33.4 L, MCV 83.9, MCH 27.6, MCHC 32.9, RDW Coeff of Jah 13.5, Plt Count 327 D, Immature Gran % (Auto) 0.8, Neut % (Auto) 85.1 H, Lymph % (Auto) 6.6 L, [place] % (Auto) 7.4, Eos % (Auto) 0.0, Baso % (Auto) 0.1, Neut # (Auto) 10.2 H, Lymph # (Auto) 0.8, [place] # (Auto) 0.9, Eos # (Auto) 0.0, Baso # (Auto) 0.0, Immature Gran # (Auto) 0.1 ASSESSMENT: Please see below. 1. CHF, under control 2. Atrial fibrillation, under control 3. UTI, resolved PLAN: 1. Discharge home with Ceftin 250mg twice a day 7 days 2. Continue rest of medications Plan and coordination of the patient's care discussed in the presence of Entry Level Buyer and nurse. SCRIBED BY: ANJEL CONWAY [employer] scribed while in presence of service performed by Dr. CUAUHTEMOC GREEN on 11/03/21 ([id number])
--- NOTE | 2021-11-03 10:16 | DS ---
DATE OF SERVICE: 11/03/21 FINAL DIAGNOSIS: CONGESTIVE HEART FAILURE ATRIAL FIBRILLATION ANTI COAGULANT USE (ELIQUIS) UTI, E-COLI ORGANISM CHRONIC ANEMIA DYSLIPIDEMIA GERD TKR, RIGHT ABDOMINAL SURGERY, ECHOCARDIOGRAM: 09/05/21 LVEF 45% LVH WITH ENLARGED LEFT ATRIAL CAVITY (5.2 MC) CALCIFIC MITRAL VALVE ANNULUS LAST VITALS: Temp Pulse Resp BP Pulse Ox 97.5 F L 105 H 20 142/90 H 98 11/03/21 05:42 11/03/21 05:42 11/03/21 05:42 11/03/21 05:42 11/03/21 10:00 DISCHARGE INSTRUCTIONS: DISCHARGE HOME. WEIGH SELF DAILY; REPORT WEIGHT GAIN OF OVER 2 POUNDS IN ONE DAY OR 5 POUNDS IN ONE WEEK TO YOUR PROVIDER. AN APPOINTMENT IS SCHEDULED WITH DR. GREEN/KIRILL CAMPO APRN/VAIBHAV RYAN APRN ON October AT 11 AM. CODE STATUS: DO NOT RESUSCITATE TAKE THESE MEDICATIONS AT HOME: Apixaban (Apixaban 5 Mg Tab) 5 mg PO BID [facility] Last Admin: 11/03/21 09:13 Dose: 5 mg Documented by: Atorvastatin Calcium (Atorvastatin Calcium 20 Mg Tablet) 20 mg PO BEDTIME [facility] Last Admin: 11/02/21 20:24 Dose: 20 mg Documented by: Diltiazem HCl (Diltiazem Hcl 120 Mg Cap.Er.24h) 120 mg PO DAILY [facility] Last Admin: 11/03/21 09:12 Dose: 120 mg Documented by: Furosemide (Furosemide 20 Mg Tablet) 20 mg PO QDAC [facility] Last Admin: 11/03/21 09:13 Dose: 20 mg Documented by: Losartan Potassium (Losartan Potassium 25 Mg Tablet) 50 mg PO DAILY [facility] Last Admin: 11/03/21 09:12 Dose: 50 mg Documented by: Omeprazole (Omeprazole 20 Mg Capsule.Dr) 40 mg PO QDAC [facility] Last Admin: 11/03/21 06:14 Dose: 40 mg Documented by: Potassium Chloride (Potassium Chloride 10 Meq Capsule.Er) 10 meq PO DAILYWM [facility] Last Admin: 11/03/21 09:13 Dose: 10 meq Documented by: CEFTIN 250 MG BID FOR 7 DAYS (NEW RX) ALLERGIES: No Known Allergies Allergy (Verified 11/01/21 11:00) DISCONTINUED MEDICATIONS: NONE NEW PRESCRIPTIONS: CEFTIN 250 MG BID FOR 7 DAYS (UTI) SMOKING: NOT APPLICABLE DISEASE SPECIFIC EDUCATION: URINARY TRACT INFECTION CONGESTIVE HEART FAILURE APPOINTMENT NEW MEDICATION LAB REVIEW: 11/03/21 07:06 11/03/21 07:06 11/03/21 07:06: Sodium 133.0 L, Potassium 4.10, Chloride 100.0, Carbon Dioxide 27.0, Anion Gap 10.10, BUN 36.0 H, Creatinine 1.00, Estimated GFR (MDRD) 54.00, BUN/Creatinine Ratio 36.00, Glucose 111.0 H, Calcium 8.40, Total Bilirubin 0.30, AST 20.0, ALT 15.0, Alkaline Phosphatase 78.0, Total Protein 7.00, Albumin 3.40 L, Globulin 3.60, Albumin/Globulin Ratio 0.94 11/03/21 07:06: WBC 11.96 H, RBC 3.98 L, Hgb 11.0 L, Hct 33.4 L, MCV 83.9, MCH 27.6, MCHC 32.9, RDW Coeff of Jah 13.5, Plt Count 327 D, Immature Gran % (Auto) 0.8, Neut % (Auto) 85.1 H, Lymph % (Auto) 6.6 L, [place] % (Auto) 7.4, Eos % (Auto) 0.0, Baso % (Auto) 0.1, Neut # (Auto) 10.2 H, Lymph # (Auto) 0.8, [place] # (Auto) 0.9, Eos # (Auto) 0.0, Baso # (Auto) 0.0, Immature Gran # (Auto) 0.1 DIET: HEART HEALTHY ACTIVITY: GRADUALLY RESUME TOLERATED ELEVATE LEGS WHEN SITTING IN THE CHAIR HOSPITAL COURSE: 80 year old female was seen in the ER with shortness of breath. The patient has a UTI which was treated with Rocephin for three days and switched to Ceftin. E- coli was sensitive to all antibiotics. The patient was given IV Lasix for pulmonary vascular congestion on chest x-ray. No symptoms of CHF. Appetite has improved. No fever or chills. At the time of discharge the patient's condition is normal. The patient had an echo done in August 2021 showing hypokinetic septal wall with ejection fraction 45%, enlarged LA cavity with calcific mitral valve annulus. The patient is COVD negative. TIME SPENT: More than 60 minutes. MTDD
--- NOTE | 2021-11-03 13:11 | CM.DICTOOL ---
ADMISSION: 11/01/21 14:06 DISCHARGE: NOVEMBER 03, 2021 DATE OF SERVICE: 11/03/21 FINAL DIAGNOSIS CONGESTIVE HEART FAILURE ATRIAL FIBRILLATION ANTI COAGULANT USE (ELIQUIS) UTI, E-COLI ORGANISM CHRONIC ANEMIA DYSLIPIDEMIA GERD TKR, RIGHT ABDOMINAL SURGERY, ECHOCARDIOGRAM: 09/05/21 LVEF 45% LVH WITH ENLARGED LEFT ATRIAL CAVITY (5.2 MC) CALCIFIC MITRAL VALVE ANNULUS LAST VITALS Temp Pulse Resp BP Pulse Ox 97.5 F L 105 H 20 142/90 H 98 11/03/21 05:42 11/03/21 05:42 11/03/21 05:42 11/03/21 05:42 11/03/21 10:00 TAKE THESE MEDICATIONS AT HOME Apixaban (Apixaban 5 Mg Tab) 5 mg PO BID [facility] Last Admin: 11/03/21 09:13 Dose: 5 mg Documented by: Atorvastatin Calcium (Atorvastatin Calcium 20 Mg Tablet) 20 mg PO BEDTIME [facility] Last Admin: 11/02/21 20:24 Dose: 20 mg Documented by: Diltiazem HCl (Diltiazem Hcl 120 Mg Cap.Er.24h) 120 mg PO DAILY [facility] Last Admin: 11/03/21 09:12 Dose: 120 mg Documented by: Furosemide (Furosemide 20 Mg Tablet) 20 mg PO QDAC [facility] Last Admin: 11/03/21 09:13 Dose: 20 mg Documented by: Losartan Potassium (Losartan Potassium 25 Mg Tablet) 50 mg PO DAILY [facility] Last Admin: 11/03/21 09:12 Dose: 50 mg Documented by: Omeprazole (Omeprazole 20 Mg Capsule.Dr) 40 mg PO QDAC [facility] Last Admin: 11/03/21 06:14 Dose: 40 mg Documented by: Potassium Chloride (Potassium Chloride 10 Meq Capsule.Er) 10 meq PO DAILYWM [facility] Last Admin: 11/03/21 09:13 Dose: 10 meq Documented by: CEFTIN 250 MG BID FOR 7 DAYS (NEW RX) ALLERGIES No Known Allergies Allergy (Verified 11/01/21 11:00) DISCONTINUED MEDICATIONS NONE NEW PRESCRIPTIONS: CEFTIN 250 MG BID FOR 7 DAYS (UTI) SMOKING: NOT APPLICABLE DISEASE SPECIFIC EDUCATION: URINARY TRACT INFECTION CONGESTIVE HEART FAILURE APPOINTMENT NEW MEDICATION LAB REVIEW: 11/03/21 07:06 11/03/21 07:06 11/03/21 07:06: Sodium 133.0 L, Potassium 4.10, Chloride 100.0, Carbon Dioxide 27.0, Anion Gap 10.10, BUN 36.0 H, Creatinine 1.00, Estimated GFR (MDRD) 54.00, BUN/Creatinine Ratio 36.00, Glucose 111.0 H, Calcium 8.40, Total Bilirubin 0.30, AST 20.0, ALT 15.0, Alkaline Phosphatase 78.0, Total Protein 7.00, Albumin 3.40 L, Globulin 3.60, Albumin/Globulin Ratio 0.94 11/03/21 07:06: WBC 11.96 H, RBC 3.98 L, Hgb 11.0 L, Hct 33.4 L, MCV 83.9, MCH 27.6, MCHC 32.9, RDW Coeff of Jah 13.5, Plt Count 327 D, Immature Gran % (Auto) 0.8, Neut % (Auto) 85.1 H, Lymph % (Auto) 6.6 L, Liberty % (Auto) 7.4, Eos % (Auto) 0.0, Baso % (Auto) 0.1, Neut # (Auto) 10.2 H, Lymph # (Auto) 0.8, Liberty # (Auto) 0.9, Eos # (Auto) 0.0, Baso # (Auto) 0.0, Immature Gran # (Auto) 0.1 PLAN: DISCHARGE HOME DIET: HEART HEALTHY ACTIVITY: GRADUALLY RESUME TOLERATED ELEVATE LEGS WHEN SITTING IN THE CHAIR WEIGH SELF DAILY; REPORT WEIGHT GAIN OF OVER 2 POUNDS IN ONE DAY OR 5 POUNDS IN ONE WEEK TO YOUR PROVIDER AN APPOINTMENT IS SCHEDULED WITH DR. GREEN/KIRILL CAMPO APRN/VAIBHAV RYAN APRN ON October AT 11 AM CODE STATUS: DO NOT RESUSCITATE MRS. GRAMAJO IS ALERT AND ORIENTED X 4. SHE IS SLIGHTLY FORGETFUL AT TIMES. SHE LIVES AT HOME WITH HER AND REPORTS CUSTODY OF SMALL CHILDREN; AGES 6 AND 7. SHE IS INDEPENDENT WITH ACTIVITIES OF DAILY. SHE IS ABLE TO TRANSFER FROM THE BED TO THE CHAIR INDEPENDENTLY. SHE IS AMBULATORY IN THE ROOM AND TO THE BATHROOM. SHE HAS A GOOD APPETITE OF 25-100%. SHE IS CONTINENT OF BOWEL AND BLADDER, BUT DOES EXPERIENCE URINARY DRIBBLING. SHE DENIES PAIN OR BURNING WITH URINATION. SKIN IS IN GOOD CONDITION, HYDRATION STATUS IS GOOD. AVAILABLE DME IN THE HOME: WALKER, SHOWER CHAIR AND SHOWER GRIPPER. MD KIRILL MOTLEY, REPLANTING MACHINE CREWMAN
--- NOTE | 2021-11-05 13:45 | PN ---
DATE OF SERVICE: 11/01/2021 ADMISSION NOTE SUBJECTIVE: The patient was brought to the emergency room by family because of increasing shortness of breath. The patient was seen and examined by the ER attending and after further workup noted to have mild pulmonary congestion. The patient has history of CHF and the rest of her evaluation with arterial blood gasses looked acceptable. The patient wanted to go home after she was given Lasix 20mg but we are going to observe her. She is DNR. PLAN: 1. Routine telemetry orders 2. May do echo incase if it not done with past 6 months 3. The medication Lasix is given along with Decadron 1cc 4. We will evaluate her in the morning 5. Further adjust of her medications CONDITION: Stable. The patient is COVID negative. TIME SPENT: More than 30 minutes. Plan and coordination of the patient's care discussed in the presence of nurse. SHAWANDA
--- NOTE | 2021-11-05 14:14 | PN ---
DATE OF SERVICE: 11/02/2021 SUBJECTIVE: 80 year old white female hospitalized with atrial fibrillation with rapid ventricular response and CHF. She is feeling a lot better. REVIEW OF SYSTEMS: CONSTITUTIONAL: No night sweats. No fatigue, malaise, lethargy. No fever or chills. HEENT: Eyes: No visual changes. No eye pain. No eye discharge. ENT: No runny nose. No epistaxis. No sinus pain. No sore throat. No odynophagia. No congestion. RESPIRATORY: No cough, no congestion. No hemoptysis. No shortness of breath. CARDIOVASCULAR: No angina symptoms. No CHF symptoms. No atypical chest pain for CAD. No palpitations. No PND. No orthopnea. GASTROINTESTINAL: No abdominal pain. No nausea or vomiting. No diarrhea or constipation. No hematemesis. No hematochezia. Appetite has improved. GENITOURINARY: No urgency. No frequency. No dysuria. No hematuria. No obstructive symptoms. No discharge. No pain. No significant abnormal bleeding. MUSCULOSKELETAL: No musculoskeletal pain; no joint swelling. NEUROLOGICAL: No headache. No neck pain. No syncope. No seizures. No dizziness. PSYCHIATRIC: Not anxious. No depression. No suicidal thoughts. No homicidal thoughts. SKIN: No rash. No lesions. No wounds. ENDOCRINE: No unexplained weight loss. No weight gain. HEMATOLOGIC/LYMPHATIC: No anemia. No purpura. No petechiae. No prolonged or excessive bleeding. No palpable lymph nodes. PHYSICAL EXAMINATION: VITAL SIGNS: Temperature 97.7, pulse 90 irregular, respiratory rate 20, blood pressure 115/62 and pulse ox 97%. HEENT: Head normocephalic, atraumatic. Eyes: Extraocular muscles are intact. Pupils are equal, round and reactive to light and accommodation. Ears: No lesions. Nose appeared normal. Throat: No exudate or erythema. NECK: Supple. No JVD, no carotid bruit. No lymphadenopathy or thyromegaly. LUNGS: Decreased breath sounds but clear to auscultation. Percussion note normal. Chest symmetrical. HEART: S1, S2, no S3. No murmurs. No cyanosis or clubbing. No ascites. Pulses: Dorsalis pedis and posterior tibial pulses +1 to +2 bilaterally. ABDOMEN: Soft. Nontender. Bowel sounds active. No CVA tenderness. No mass felt. EXTREMITIES: No edema. Full range of motion of all extremities, equal. NEUROLOGIC: No focal deficit. Cranial nerves II through XII are grossly intact. No headache. No double vision. SKIN: Not dry. Intact. Turgor - normal. LYMPHATIC: No palpable lymph nodes/no lymphedema. MUSCULOSKELETAL: Normal joints with no swelling. Muscle tone is normal. LABS: Hgb 10, hct 30, WBC 7,200 normal differential, creatinine 1, BUN 31, potassium 4. PROBNP 2,050 on admission. Troponin negative. EKG sinus rhythm. No acute changes. Atrial fibrillation. ASSESSMENT: 1. CHF seems to have been under control. No symptoms of it now 2. Atrial fibrillation with normal ventricular response 3. Other medical conditions are stable. PLAN: 1. Continue to monitor the patient's telemetry 2. The patient's echo showed Aug 2021 ejection fraction 45% with hypokinetic septum with enlarged LA cavity 5.2cm. Calcific mitral value annulus noted. CONDITION: Otherwise stable. No need manipulate her medication for now. ADDENDUM: The patient's U/A showed 4+ bacteria. She was given 1 gram of Rocephin IM and will be getting it everyday. TIME SPENT: More than 30 minutes. Plan and coordination of the patient's care discussed in the presence of nurse. SHAWANDA
== END 2021-11-03 13:50 | disposition home or self-care (01) | DRG 204 ==
LOC: ED 10:45 → MEDSURG A 14:06
PROVIDERS: ADMIT Internal Medicine; ATTEND Internal Medicine
DX: B96.20 Unspecified Escherichia coli [E. coli] as the cause of diseases classified elsewhere; R06.02 Shortness of breath; Z79.01 Long term (current) use of anticoagulants; N39.0 Urinary tract infection, site not specified; I48.0 Paroxysmal atrial fibrillation; Z20.822 Contact with and (suspected) exposure to COVID-19; I10 Essential (primary) hypertension; I50.9 Heart failure, unspecified; R00.0 Tachycardia, unspecified